=== PATIENT | male | born 1945 | race Caucasian/White ===

== ENCOUNTER → 2017-01-07 | Outpatient (CLI) | payer MEDICARE ==
[2017-01-07 11:26] LABS: Calcium 9.2 mg/dL (8.4-10.2); Potassium 5.1 mmol/L (3.5-5.1)
== END | disposition home or self-care (01) ==
LOC: LABWHC1 10:34
PROVIDERS: ATTEND Nurse Practitioner Family
DX: N18.3 Chronic kidney disease, stage 3 (moderate) (principal)
CPT/HCPCS: 36415; 80048

== ENCOUNTER → 2017-02-18 | Outpatient (CLI) | payer MEDICARE ==
[2017-02-18 11:39] LABS: Appearance,Urine Clear (Clear); Bilirubin,Urine Negative (Negative); Glucose,Urine (UA) Negative (Negative); Ketones,Urine Negative (Negative); Leukocyte Esterase,Urine Negative (Negative); Nitrite,Urine Negative (Negative); PH, Urine 6.5 (5.0-8.0); Protein,Urine Trace (Negative); Specific Gravity,Urine 1.004 (1.001-1.035); UA Billing (MACRO vs. MICRO) CHEM; Urobilinogen,Urine <2.0 mg/dL (<2.0)
[2017-02-18 11:41] LABS: Basophils # (A) 0.1 k/uL (0-0.2); Basophils % (A) 1 %; CHCM 32.5; Eosinophils # (A) 0.2 k/uL (0-0.7); Eosinophils % (A) 3 %; HCT 49.9 % (39.0-53.0); HDW 3.04; HGB 15.8 gm/dL (13.0-17.5); Luc # (Auto) 0.27; Luc % (Auto) 4; Lymphocytes # (A) 1.8 k/uL (1.0-4.8); Lymphocytes % (A) 28 %; MCH 30.3 pg (25.0-35.0); MCHC 31.6 g/dL (31.0-37.0); Mean Platelet Volume 9.4; Monocytes # (A) 0.5 k/uL (0-1.0); Monocytes % (A) 7 %; Neutrophils # (A) 3.7 k/uL (1.3-7.7); Neutrophils % (A) 57 %; RDW 14.5 % (11.5-15.5); WBC 6.5 k/uL (3.8-10.6); WBC (Perox) 6.46
[2017-02-18 12:01] LABS: Calcium 9.2 mg/dL (8.4-10.2); Phosphorous 3.4 mg/dL (2.5-4.5); Potassium 4.7 mmol/L (3.5-5.1); Uric Acid 6.8 mg/dL (3.5-8.5)
[2017-02-18 12:10] LABS: % Iron Saturation 36.1 % (20-50)
== END | disposition home or self-care (01) ==
LOC: LABWHC1 10:54
PROVIDERS: ATTEND Nurse Practitioner Family
DX: N25.81 Secondary hyperparathyroidism of renal origin (principal); D64.9 Anemia, unspecified; E55.9 Vitamin D deficiency, unspecified; M10.9 Gout, unspecified; N39.0 Urinary tract infection, site not specified
CPT/HCPCS: 36415; 80048; 81003; 82306; 82728; 83540; 83550; 83735; 83970; 84100; 84550; 85025

== ENCOUNTER 2017-04-24 20:33 | Emergency (ER) | payer MEDICARE ==
--- NOTE | 2017-04-24 21:15 | ED ---
General Adult HPI - General Chief complaint: Urogenital Stated complaint: Male Time Seen by Provider: 04/24/17 21:00 Source: patient, RN notes reviewed Mode of arrival: ambulatory Limitations: no limitations - History of Present Illness Initial comments: This is a 71-year-old male who had a biopsy done on his prostate on the . Patient states he was taken off the Xarelto for that procedure. Patient was having no more blood in his urine so they started him back on Xarelto. Patient states since Saturday he has been having some issues urinating and urinating blood clots. Patient states he stopped the Xarelto on Saturday. Patient states today however he is completely blocked often unable to urinate. Patient denies any recent fever chills or cough. Patient states the suprapubic area is very tender. Patient denies any nausea vomiting diarrhea. Patient states this was never a problem prior to the biopsy. - Related Data Home Medications Medication Instructions Recorded Confirmed Allopurinol [Zyloprim] 100 mg PO QAM 08/24/15 04/24/17 Atorvastatin [Lipitor] 40 mg PO DAILY 08/24/15 04/24/17 Budesonide [Pulmicort Flexhaler] 1 puff INHALATION RT-DAILY 08/24/15 04/24/17 Enalapril [Vasotec] 2.5 mg PO BID 08/24/15 04/24/17 Furosemide [Lasix] 40 mg PO QAM 08/24/15 04/24/17 Metoprolol Succinate (ER) [Toprol 150 mg PO QAM 08/24/15 04/24/17 Xl] Calcitriol 0.25 mcg PO MOTUWEFRSA 08/29/15 04/24/17 Ergocalciferol [Vitamin D2] 50,000 unit PO QMONTH 04/24/17 04/24/17 Rivaroxaban [Xarelto] 20 mg PO DAILY 04/24/17 04/24/17 Allergies Allergy/AdvReac Type Severity Reaction Status Date / Time alprazolam [From Xanax] AdvReac Unknown Hallucinati Verified 04/24/17 21:04 ons Review of Systems ROS Statement: Those systems with pertinent positive or pertinent negative responses have been documented in the HPI. ROS Other: All systems not noted in ROS Statement are negative. Past Medical History Past Medical History: Coronary Artery Disease (CAD), Cancer, COPD, Hyperlipidemia, Hypertension, Memory Impairment, Myocardial Infarction ([place]), Osteoarthritis (OA), Renal Disease Additional Past Medical History / Comment(s): ischemic cardiomyopathy, class ii heart failure,systolic dysfunction lt ventricle ejection f 25%, carotid athersclerosis, retinal artery branch occlusion rt eye-vison loss, hx of sustained v-tach, past afib dual chamber icd, bladder cancer, ckd stage 111 Last Myocardial Infarction Date:: 1989? History of Any Multi-Drug Resistant Organisms: None Reported Past Surgical History: Coronary Bypass/CABG Additional Past Surgical History / Comment(s): aortic aneursyn, cataracts-lens implants, BUNIONECTOMY.12-13-15 dual chamber implantable cardiac defibrilator generator change and testing, cystoscopy/bx/bcg tx for bladder cancer, colonoscopy-neg, 5 vessel cabg,heart cath after cabg-clear Past Anesthesia/Blood Transfusion Reactions: No Reported Reaction Additional Past Anesthesia/Blood Transfusion Reaction / Comment(s): started smoking at age 11, quit 2002 Past Psychological History: No Psychological Hx Reported Smoking Status: Former smoker Past Alcohol Use History: None Reported Additional Past Alcohol Use History / Comment(s): STARTED SMOKING AGE 11. QUIT SMOKING 2002 Past Drug Use History: None Reported - Past Family History Mother Additional Family Medical History / Comment(s): from aaa Father Family Medical History: Congestive Heart Failure (CHF), CVA/TIA General Exam - General Exam Comments Initial Comments: GENERAL: Patient is well-developed and well-nourished. Patient is nontoxic and well- hydrated and is in mild distress. ENT: Neck is soft and supple. No significant lymphadenopathy is noted. Oropharynx is clear. Moist mucous membranes. EYES: The sclera were anicteric and conjunctiva were pink and moist. Extraocular movements were intact. Eyelids were unremarkable. ABDOMEN: Suprapubic distention and tenderness SKIN: Skin is clear with no lesions or rashes and otherwise unremarkable. NEUROLOGIC: Patient is alert and oriented x3. Cranial nerves II through XII are grossly intact. Motor and sensory are also intact. Normal speech, volume and content. Symmetrical smile. MUSCULOSKELETAL: Normal extremities with adequate strength and full range of motion. LYMPHATICS: No significant lymphadenopathy is noted PSYCHIATRIC: Normal psychiatric evaluation. Limitations: no limitations Course Vital Signs 04/24/17 04/24/17 20:41 21:43 Temperature 98.3 F Pulse Rate 90 55 L Respiratory 18 16 Rate Blood Pressure 228/92 183/79 O2 Sat by Pulse 99 98 Oximetry Medical Decision Making - Medical Decision Making Patient had a catheter placed it relieved his pressure almost immediately. The urine was quite bloody and the patient wanted to go home with the catheter in place and follow up with Dr. Caceres - Lab Data Result diagrams: 04/24/17 21:45 Lab Results 04/24/17 04/24/17 Range/Units 21:45 21:45 WBC 6.1 (3.8-10.6) k/uL RBC 4.69 (4.30-5.90) m/uL Hgb 14.7 (13.0-17.5) gm/dL Hct 44.1 (39.0-53.0) % MCV 94.0 (80.0-100.0) fL MCH 31.4 (25.0-35.0) pg MCHC 33.4 (31.0-37.0) g/dL RDW 14.3 (11.5-15.5) % Plt Count 151 (150-450) k/uL Neutrophils % 60 % Lymphocytes % 25 % Monocytes % 7 % Eosinophils % 5 % Basophils % 1 % Neutrophils # 3.6 (1.3-7.7) k/uL Lymphocytes # 1.5 (1.0-4.8) k/uL Monocytes # 0.4 (0-1.0) k/uL Eosinophils # 0.3 (0-0.7) k/uL Basophils # 0.1 (0-0.2) k/uL Urine Color Dark Red Urine Appearance Bloody (Clear) Urine RBC >182 H (0-5) /hpf Urine WBC >182 H (0-5) /hpf Disposition Clinical Impression: Urinary retention, Hematuria Disposition: HOME SELF-CARE Instructions: Urinary Retention in Men (ED) Referrals: Aden Koenig MD [Primary Care Provider] - 1-2 days Kushal Caceres MD [STAFF PHYSICIAN] - 1-2 days Time of Disposition: 22:30
[2017-04-24 21:56] VITALS: RESP 16
[2017-04-24 22:02] LABS: Basophils # (A) 0.1 k/uL (0-0.2); Basophils % (A) 1 %; CH 31.2; CHCM 33.3; Eosinophils # (A) 0.3 k/uL (0-0.7); Eosinophils % (A) 5 %; HCT 44.1 % (39.0-53.0); HDW 3.03; HGB 14.7 gm/dL (13.0-17.5); Luc # (Auto) 0.15; Luc % (Auto) 3; Lymphocytes # (A) 1.5 k/uL (1.0-4.8); Lymphocytes % (A) 25 %; MCH 31.4 pg (25.0-35.0); MCHC 33.4 g/dL (31.0-37.0); Mean Platelet Volume 8.3; Monocytes # (A) 0.4 k/uL (0-1.0); Monocytes % (A) 7 %; Neutrophils # (A) 3.6 k/uL (1.3-7.7); Neutrophils % (A) 60 %; RBC 4.69 m/uL (4.30-5.90); RDW 14.3 % (11.5-15.5); WBC 6.1 k/uL (3.8-10.6); WBC (Perox) 6.16
[2017-04-24 22:17] LABS: Particle Count 76420; RBC,Urine >182 /hpf (0-5); WBC,Urine >182 /hpf (0-5)
[2017-04-24 22:18] LABS: Appearance,Urine Bloody (Clear)
[2017-04-24 22:20] LABS: UA Billing (MACRO vs. MICRO) MICRO
[2017-04-24 22:47] VITALS: BP 154/67; PULSE 50; TEMP 97.4
== END 2017-04-24 22:46 | disposition home or self-care (01) ==
LOC: EC 20:33
DX: R33.9 Retention of urine, unspecified (principal); R31.9 Hematuria, unspecified; E78.5 Hyperlipidemia, unspecified; I25.10 Atherosclerotic heart disease of native coronary artery without angina pectoris; I25.2 Old myocardial infarction; J44.9 Chronic obstructive pulmonary disease, unspecified; I13.0 Hypertensive heart and chronic kidney disease with heart failure and stage 1 through stage 4 chronic kidney disease, or unspecified chronic kidney disease; N18.3 Chronic kidney disease, stage 3 (moderate); M19.90 Unspecified osteoarthritis, unspecified site; Z95.1 Presence of aortocoronary bypass graft; Z87.891 Personal history of nicotine dependence; Z85.51 Personal history of malignant neoplasm of bladder; Z79.01 Long term (current) use of anticoagulants; Z79.51 Long term (current) use of inhaled steroids; Z79.899 Other long term (current) drug therapy; Z88.8 Allergy status to other drugs, medicaments and biological substances
CPT/HCPCS: 36415; 51798; 81001; 85025; 99284

== ENCOUNTER → 2017-05-27 | Outpatient (CLI) | payer MEDICARE ==
[2017-05-27 11:33] LABS: Calcium 9.8 mg/dL (8.4-10.2); Potassium 5.5 mmol/L (3.5-5.1)
== END | disposition home or self-care (01) ==
LOC: LABWHC1 10:12
PROVIDERS: ATTEND Nurse Practitioner Family
DX: N18.3 Chronic kidney disease, stage 3 (moderate) (principal)
CPT/HCPCS: 36415; 80048

== ENCOUNTER → 2017-06-01 | Outpatient (CLI) | payer MEDICARE ==
[2017-06-01 10:51] LABS: Calcium 9.2 mg/dL (8.4-10.2); Potassium 4.2 mmol/L (3.5-5.1)
== END | disposition home or self-care (01) ==
LOC: LABWHC1 08:46
PROVIDERS: ATTEND Nurse Practitioner
DX: C67.8 Malignant neoplasm of overlapping sites of bladder (principal); N18.3 Chronic kidney disease, stage 3 (moderate)
CPT/HCPCS: 36415; 80048

== ENCOUNTER → 2017-08-02 | Outpatient (CLI) | payer MEDICARE ==
[2017-08-02 16:13] LABS: Basophils # (A) 0.1 k/uL (0-0.2); Basophils % (A) 1 %; CH 29.9; CHCM 31.1; Eosinophils # (A) 0.4 k/uL (0-0.7); Eosinophils % (A) 5 %; HCT 40.1 % (39.0-53.0); HDW 3.04; HGB 12.7 gm/dL (13.0-17.5); Hypochromasia Moderate; Luc # (Auto) 0.25; Luc % (Auto) 3; Lymphocytes # (A) 1.4 k/uL (1.0-4.8); Lymphocytes % (A) 18 %; MCH 30.8 pg (25.0-35.0); MCHC 31.8 g/dL (31.0-37.0); Mean Platelet Volume 7.6; Monocytes # (A) 0.4 k/uL (0-1.0); Monocytes % (A) 5 %; Neutrophils # (A) 5.4 k/uL (1.3-7.7); Neutrophils % (A) 68 %; RBC 4.13 m/uL (4.30-5.90); RDW 15.7 % (11.5-15.5); WBC (Perox) 8.53
[2017-08-02 16:39] LABS: Calcium 9.7 mg/dL (8.4-10.2); Total Bilirubin 0.3 mg/dL (0.2-1.3)
== END | disposition home or self-care (01) ==
LOC: LABWHC1 15:39
PROVIDERS: ATTEND Urology
DX: C67.8 Malignant neoplasm of overlapping sites of bladder (principal)
CPT/HCPCS: 36415; 80053; 85025

== ENCOUNTER → 2017-09-10 | Outpatient (CLI) | payer MEDICARE ==
[2017-09-10 12:56] LABS: Calcium 9.1 mg/dL (8.4-10.2); Total Bilirubin 0.5 mg/dL (0.2-1.3); Total Protein 7.4 g/dL (6.3-8.2)
== END | disposition home or self-care (01) ==
LOC: LABWHC1 12:07
PROVIDERS: ATTEND Internal Medicine Interventional Cardiology
DX: E78.2 Mixed hyperlipidemia (principal)
CPT/HCPCS: 36415; 80053; 80061

== ENCOUNTER → 2017-10-21 | Outpatient (CLI) | payer MEDICARE ==
--- NOTE | 2017-10-21 18:31 | US ---
EXAMINATION TYPE: US kidneys/renal and bladder DATE OF EXAM: 10/21/2017 COMPARISON: 09/12/2015 CLINICAL HISTORY: N18.3 Chronic kidney disease stage 3. Has urostomy bag from July 2017 bladder rem oval. EXAM MEASUREMENTS: Right Kidney: 9.5 x 4.3 x 4.9 cm Left Kidney: 10.2 x 5.2 x 5.0 cm Post Void Residual Volume: NA as bladder surgically removed in July 2017 due to CA. Right Kidney: 1.2 x 1.2 x 1.3cm inferior cortical cyst is imaged with smaller adjacent cyst also note d Left Kidney: inferior cortical cyst = 0.7 x 0.6 x 0.5cm Bladder: surgically removed and unable to scan at bladder midline level due to incisional bandage loc ated here as patient stated has small incisional opening still draining from July surgery. IMPRESSION: There are renal cortical cysts. No evidence of solid renal mass. No evidence of renal obstruction. No adverse change in the kidneys compared to last exam.
== END | disposition home or self-care (01) ==
LOC: RADUSWWP 16:02
PROVIDERS: ATTEND Internal Medicine Nephrology
DX: N28.1 Cyst of kidney, acquired (principal); N18.3 Chronic kidney disease, stage 3 (moderate)
CPT/HCPCS: 76770

== ENCOUNTER → 2017-12-20 | Outpatient (CLI) | payer MEDICARE | END | disposition home or self-care (01) | LOC: LABWHC1 13:34 | PROVIDERS: ATTEND Nurse Practitioner Family | DX: E87.5 Hyperkalemia (principal) | CPT/HCPCS: 36415; 84132 ==

== ENCOUNTER → 2018-01-08 | Outpatient (CLI) | payer MEDICARE ==
[2018-01-08 12:38] LABS: Albumin 4.1 g/dL (3.5-5.0); Calcium 9.3 mg/dL (8.4-10.2); Potassium 5.1 mmol/L (3.5-5.1); Total Bilirubin 0.6 mg/dL (0.2-1.3); Total Protein 7.4 g/dL (6.3-8.2)
== END | disposition home or self-care (01) ==
LOC: LABWHC1 11:41
PROVIDERS: ATTEND Internal Medicine Interventional Cardiology
DX: E78.2 Mixed hyperlipidemia (principal)
CPT/HCPCS: 36415; 80053; 80061

== ENCOUNTER 2018-02-15 18:28 | Inpatient (IN) | payer MEDICARE ==
[2018-02-15] MEDS ORDERED: IPRATROPIUM-ALBUTEROL 3 ML NEB INHALATION STA (18:43)
[2018-02-15] MEDS ORDERED: SODIUM CHLORIDE 0.9% 1,000 ML IV STA (18:52)
--- NOTE | 2018-02-15 18:58 | ED ---
General Adult HPI - General Chief complaint: Shortness of Breath Stated complaint: LUZMARIA Time Seen by Provider: 02/15/18 18:40 Source: patient, RN notes reviewed, old records reviewed Mode of arrival: wheelchair Limitations: no limitations - History of Present Illness Initial comments: Chief complaint history of present illness is a 72-year-old male here for complaint of shortness of breath. Worse this morning. Worse with to see the mild exertion. No pain. On emergency room call several times in the small amount of blood, hemoptysis in the phlegm. Patient again denies any chest pain. Past history of COPD. Does not do updrafts at home. - Related Data Home Medications Medication Instructions Recorded Confirmed Allopurinol [Zyloprim] 100 mg PO QAM 08/24/15 02/15/18 Atorvastatin [Lipitor] 40 mg PO HS 08/24/15 02/15/18 Budesonide [Pulmicort Flexhaler] 1 puff INHALATION RT-DAILY 08/24/15 02/15/18 Calcitriol 0.25 mcg PO MOTUWEFRSA 08/29/15 02/15/18 Metoprolol Tartrate [Lopressor] 50 mg PO HS 11/29/17 02/15/18 Metoprolol Tartrate [Lopressor] 100 mg PO DAILY 11/29/17 02/15/18 hydrALAZINE HCL [Apresoline] 25 mg PO BID 02/15/18 02/15/18 Allergies Allergy/AdvReac Type Severity Reaction Status Date / Time alprazolam [From Xanax] AdvReac Unknown Hallucinati Verified 02/15/18 19:09 ons codeine AdvReac Hallucinati Verified 02/15/18 19:09 ons Review of Systems ROS Statement: Those systems with pertinent positive or pertinent negative responses have been documented in the HPI. Review of systems. No headache or visual acuity changes. No stiff neck. No chest pain but he has a cough and feel short of breath with even mild exertion. Hemoptysis is noted while in emergency room. No nausea no vomiting no change in appetite. Back pain. No stomach pain. All systems are reviewed Past medical problems significant for coronary disease and [place]. Bladder cancer with bladder removed this past July. CHF, COPD, hyperlipidemia. He's had a history of hyper tension osteoarthritis and chronic renal failure. As well as ischemic cardiomyopathy. Surgeries include coronary bypass, pacemaker and aortic aneurysm repair. Patient quit smoking 15 years ago drinks alcohol rarely socially. Family history no cancers. ALLERGIES to alprazolam and codeine ROS Other: All systems not noted in ROS Statement are negative. Past Medical History Past Medical History: Coronary Artery Disease (CAD), Cancer, Heart Failure, COPD , Hyperlipidemia, Hypertension, Memory Impairment, Myocardial Infarction ([place]), Osteoarthritis (OA), Renal Disease Additional Past Medical History / Comment(s): ischemic cardiomyopathy, class ii heart failure,systolic dysfunction lt ventricle ejection f 25%, carotid athersclerosis, retinal artery branch occlusion rt eye-vison loss, hx of sustained v-tach, past afib dual chamber icd, bladder cancer, ckd stage 3 Last Myocardial Infarction Date:: 1989? History of Any Multi-Drug Resistant Organisms: None Reported Past Surgical History: Coronary Bypass/CABG, Pacemaker Additional Past Surgical History / Comment(s): aortic aneursyn, cataracts-lens implants, BUNIONECTOMY.12-13-15 dual chamber implantable cardiac defibrilator generator change and testing, cystoscopy/bx/bcg tx for bladder cancer, bladder removed, urostomy placed, colonoscopy-neg, 5 vessel cabg,heart cath after cabg- clear Past Anesthesia/Blood Transfusion Reactions: No Reported Reaction Additional Past Anesthesia/Blood Transfusion Reaction / Comment(s): started smoking at age 10, quit 2003 Type of Cardiac Device: AICD Device Placement Date:: 12/13/2015 Past Psychological History: No Psychological Hx Reported Smoking Status: Former smoker Past Alcohol Use History: None Reported Past Drug Use History: None Reported - Past Family History Mother Additional Family Medical History / Comment(s): from aaa Father Family Medical History: Congestive Heart Failure (CHF), CVA/TIA General Exam - General Exam Comments Initial Comments: General: The patient is awake and alert, here because of difficulty breathing which started this morning. Worse with even mild exertion. While in emergency room he did cough some blood in the his tissue. He reports this only happened twice today. Denying chest pain. Vital signs are temperature 97.7 pulse respiratory rate 26 pulse ox 95% room air blood pressure 188/77 Eye: Pupils are equal, round and reactive to light, extra-ocular movements are intact ; there is normal conjunctiva bilaterally. No signs of icterus. Ears, nose, mouth and throat: There are moist mucous membranes and no oral lesions. Neck: The neck is supple, there is no tenderness, no carotid bruit. Cardiovascular: Bradycardic heart rate 54. Patient reports that his pacemaker is set to 50. Respiratory: Faint wheeze on the right side, short of breath, appears dyspneic. Hemoptysis. Gastrointestinal: Soft, non-distended, non-tender abdomen without masses or organomegaly noted. There is no rebound or guarding present. No CVA tenderness. Bowel sounds are unremarkable. Back: There is no tenderness to palpation in the midline. There is no obvious deformity. No rashes noted. Musculoskeletal: Normal ROM, no tenderness, minimal pitting edema right leg only. There is no calf tenderness or swelling. Sensation intact. Pulses equal bilaterally 2+. Neurological: CN II-XII intact, There are no obvious motor or sensory deficits. Coordination appears grossly intact. Speech is normal. No focal or lateralizing findings Skin: Skin is warm and dry and no rashes or lesions are noted. No rashes Psychiatric: Cooperative, Limitations: no limitations Course Vital Signs 02/15/18 02/15/18 02/15/18 18:31 18:49 18:58 Temperature 97.7 F Pulse Rate 60 56 L 56 L Respiratory 26 H 18 18 Rate Blood Pressure 188/77 O2 Sat by Pulse 95 Oximetry 02/15/18 02/15/18 02/15/18 19:15 20:05 21:05 Temperature Pulse Rate 56 L 50 L Respiratory 20 16 17 Rate Blood Pressure 135/60 135/64 O2 Sat by Pulse 94 L 90 L Oximetry Medical Decision Making - Medical Decision Making Medical decision making; a 72-year-old male here with complaint of shortness of breath. While in emergency room he coughed up several times small amounts of blood, hemoptysis. UpdraftDuoNeb did help. The patient was sent for a chest x-ray, report findings and implantable cardiac device noted. Interstitial opacities are seen in the right lung increased since previous study. Mild cephalization of the pulmonary vessels. No pneumothorax or pleural effusion is seen. There is flattening of the diaphragm. There is sternotomy wires. Compression mild CHF. As read by Dr. Vasques. [employer] show a white count of 20.6. Hemoglobin 13 hematocrit of 42. INR 1.2. D -dimer elevated at 6.07. Potassium is 4.9. The patient's chronic kidney disease and his numbers are similar today as they have been in the past with a BUN of 36 creatinine 1.6 to GFR of only 42. Glucose 101. Troponin 0.024. BNP elevated at 6820. The patient will have a VQ scan to rule out PE. VQ scan was done to rule out PE. The radiologist's findings are there are matching use segmental size defects involving the lingula left upper lobe, so. Segment right lower lobe, right middle lobe. There is also matching defect at the right lung apex. There is no ventilation perfusion mismatch. Heart appears enlarged. Impression multiple matching defects consistent with airway disease. These appear worse than old exam. There is no pulmonary consolidation on the chest x-ray today. There is overall a low intermediate probability of pulmonary embolism. As dictated by Dr. Bautista. the patient be admitted to Dr. Schumacher. Diagnosis of congestive heart failure, hemoptysis, chronic kidney disease. Cardiology consultation as well as nephrology consultation be requested. - Lab Data Result diagrams: 02/15/18 19:35 02/15/18 19:35 Lab Results 02/15/18 02/15/18 02/15/18 Range/Units 19:35 19:35 19:35 WBC 20.6 H (3.8-10.6) k/uL RBC 4.69 (4.30-5.90) m/uL Hgb 13.3 (13.0-17.5) gm/dL Hct 42.2 (39.0-53.0) % MCV 90.0 (80.0-100.0) fL MCH 28.4 (25.0-35.0) pg MCHC 31.6 (31.0-37.0) g/dL RDW 16.1 H (11.5-15.5) % Plt Count 131 L (150-450) k/uL Neutrophils % 94 % Lymphocytes % 3 % Monocytes % 2 % Eosinophils % 1 % Basophils % 0 % Neutrophils # 19.4 H (1.3-7.7) k/uL Lymphocytes # 0.5 L (1.0-4.8) k/uL Monocytes # 0.3 (0-1.0) k/uL Eosinophils # 0.2 (0-0.7) k/uL Basophils # 0.1 (0-0.2) k/uL Hypochromasia Slight Anisocytosis Slight PT (9.0-12.0) sec INR (<1.2) APTT (22.0-30.0) sec D-Dimer (<0.60) mg/L FEU Sodium 143 (137-145) mmol/L Potassium 4.9 (3.5-5.1) mmol/L Chloride 106 (98-107) mmol/L Carbon Dioxide 25 (22-30) mmol/L Anion Gap 12 mmol/L BUN 36 H (9-20) mg/dL Creatinine 1.60 H (0.66-1.25) mg/dL Est GFR (CKD-EPI)AfAm 49 (>60 ml/min/1.73 sqM) Est GFR (CKD-EPI)NonAf 42 (>60 ml/min/1.73 sqM) Glucose 101 H (74-99) mg/dL Calcium 9.6 (8.4-10.2) mg/dL Magnesium 1.8 (1.6-2.3) mg/dL Total Bilirubin 0.7 (0.2-1.3) mg/dL AST 26 (17-59) U/L ALT 26 (21-72) U/L Alkaline Phosphatase 75 (38-126) U/L Total Creatine Kinase 59 (55-170) U/L CK-MB (CK-2) 0.9 (0.0-2.4) ng/mL CK-MB (CK-2) Rel Index 1.5 Troponin I 0.024 (0.000-0.034) ng/mL NT-Pro-B Natriuret Pep pg/mL Total Protein 7.6 (6.3-8.2) g/dL Albumin 4.1 (3.5-5.0) g/dL 02/15/18 02/15/18 Range/Units 19:35 19:35 WBC (3.8-10.6) k/uL RBC (4.30-5.90) m/uL Hgb (13.0-17.5) gm/dL Hct (39.0-53.0) % MCV (80.0-100.0) fL MCH (25.0-35.0) pg MCHC (31.0-37.0) g/dL RDW (11.5-15.5) % Plt Count (150-450) k/uL Neutrophils % % Lymphocytes % % Monocytes % % Eosinophils % % Basophils % % Neutrophils # (1.3-7.7) k/uL Lymphocytes # (1.0-4.8) k/uL Monocytes # (0-1.0) k/uL Eosinophils # (0-0.7) k/uL Basophils # (0-0.2) k/uL Hypochromasia Anisocytosis PT 11.5 (9.0-12.0) sec INR 1.2 H (<1.2) APTT 23.7 (22.0-30.0) sec D-Dimer 6.07 H (<0.60) mg/L FEU Sodium (137-145) mmol/L Potassium (3.5-5.1) mmol/L Chloride (98-107) mmol/L Carbon Dioxide (22-30) mmol/L Anion Gap mmol/L BUN (9-20) mg/dL Creatinine (0.66-1.25) mg/dL Est GFR (CKD-EPI)AfAm (>60 ml/min/1.73 sqM) Est GFR (CKD-EPI)NonAf (>60 ml/min/1.73 sqM) Glucose (74-99) mg/dL Calcium (8.4-10.2) mg/dL Magnesium (1.6-2.3) mg/dL Total Bilirubin (0.2-1.3) mg/dL AST (17-59) U/L ALT (21-72) U/L Alkaline Phosphatase (38-126) U/L Total Creatine Kinase (55-170) U/L CK-MB (CK-2) (0.0-2.4) ng/mL CK-MB (CK-2) Rel Index Troponin I (0.000-0.034) ng/mL NT-Pro-B Natriuret Pep 6820 pg/mL Total Protein (6.3-8.2) g/dL Albumin (3.5-5.0) g/dL Disposition Clinical Impression: Congestive heart failure, Chronic kidney disease, Hemoptysis, COPD (chronic obstructive pulmonary disease) Disposition: ADMITTED IP TO THIS [facility] Condition: Serious Referrals: Jose Rafael Jolly MD [Primary Care Provider] - 1-2 days
[2018-02-15 19:46] LABS: Anisocytosis Slight; Basophils # (A) 0.1 k/uL (0-0.2); Basophils % (A) 0 %; Eosinophils # (A) 0.2 k/uL (0-0.7); Eosinophils % (A) 1 %; HCT 42.2 % (39.0-53.0); HGB 13.3 gm/dL (13.0-17.5); Hypochromasia Slight; Lymphocytes # (A) 0.5 k/uL (1.0-4.8); Lymphocytes % (A) 3 %; MCH 28.4 pg (25.0-35.0); MCHC 31.6 g/dL (31.0-37.0); Mean Platelet Volume 8.9; Monocytes # (A) 0.3 k/uL (0-1.0); Monocytes % (A) 2 %; Neutrophils # (A) 19.4 k/uL (1.3-7.7); Neutrophils % (A) 94 %; Platelet Count 131 k/uL (150-450); RBC 4.69 m/uL (4.30-5.90); RDW 16.1 % (11.5-15.5); WBC 20.6 k/uL (3.8-10.6)
[2018-02-15 19:53] LABS: Albumin 4.1 g/dL (3.5-5.0); Calcium 9.6 mg/dL (8.4-10.2); Magnesium 1.8 mg/dL (1.6-2.3); Potassium 4.9 mmol/L (3.5-5.1); Total Bilirubin 0.7 mg/dL (0.2-1.3); Total Protein 7.6 g/dL (6.3-8.2)
--- NOTE | 2018-02-15 19:53 | XR ---
EXAMINATION TYPE: XR chest 2V DATE OF EXAM: 02/15/2018 COMPARISON: April 06, 2016 HISTORY: Chest pain TECHNIQUE: Frontal and lateral views of the chest are obtained. FINDINGS: Implantable cardiac device is again noted. Interstitial opacities are seen in the right janey ng have slightly increased since the previous study. There is mild cephalization of the pulmonary ves sels. No pneumothorax or pleural effusion is seen. There is flattening of the diaphragm. There is bee n a sternotomy. IMPRESSION: Mild CHF
[2018-02-15 19:59] LABS: INR 1.2 (<1.2); Partial Thromboplastin Time 23.7 sec (22.0-30.0); Prothrombin Time 11.5 sec (9.0-12.0)
[2018-02-15 20:03] LABS: D-Dimer 6.07 mg/L FEU (<0.60)
[2018-02-15 20:28] LABS: Creatine Kinase MB 0.9 ng/mL (0.0-2.4); Troponin I 0.024 ng/mL (0.000-0.034)
[2018-02-15] MEDS ORDERED: FUROSEMIDE 10 MG/ML 4 ML VIAL IV STA (20:52)
--- NOTE | 2018-02-15 22:53 | NM ---
EXAMINATION TYPE: NM pul vent and perfuse DATE OF EXAM: 02/15/2018 COMPARISON: 08/10/2010 HISTORY: Short of breath TECHNIQUE: Utilizing inhalation of 69 mCi Tc 99m DTPA aerosol and intravenous injection of 5.4 mCi o f Tc 99m MAA, ventilation and perfusion images are acquired post injection in multiple projections. FINDINGS: There are matching segmental sized defects involving the lingula left upper lobe, superior segment ri ght lower lobe, right middle lobe. There is also matching defect at the right lung apex. There is no ventilation/perfusion mismatch. Heart appears enlarged. IMPRESSION: Multiple matching defects consistent with airway disease. These appear worse than old exam. There is no pulmonary consolidation on the chest x-ray today. There is overall a low to intermediate probability of pulmonary embolism.
[2018-02-15] MEDS ORDERED: ACETAMINOPHEN TAB 325 MG TAB PO PRN (23:15)
[2018-02-15] MEDS ORDERED: NALOXONE 0.4 MG/ML 1 ML VIAL IV PRN (23:15)
[2018-02-15] MEDS ORDERED: IPRATROPIUM-ALBUTEROL 3 ML NEB INHALATION PRN (23:22)
[2018-02-16] MEDS: methylPREDNISolone SOD SUCCI 40 MG/ML 1 ML VIAL IV SCH ×2 (00:14→06:29)
[2018-02-16] MEDS: SODIUM CHLORIDE 0.9% 1,000 ML IV SCH ×2 (00:14→23:19)
[2018-02-16 01:53] LABS: Creatine Kinase MB 0.9 ng/mL (0.0-2.4); Troponin I 0.012 ng/mL (0.000-0.034)
[2018-02-16 06:12] LABS: Glucose,Whole Blood 149 mg/dL (75-99)
[2018-02-16] MEDS: INSULIN ASPART 100 UNIT/ML 1 ML 10 ML VIAL SQ SCH ×4 (06:29→21:46)
[2018-02-16 07:36] LABS: Albumin 3.7 g/dL (3.5-5.0); Total Bilirubin 0.8 mg/dL (0.2-1.3); Total Protein 6.9 g/dL (6.3-8.2)
[2018-02-16 08:08] LABS: Basophils % (A) 0 %; Eosinophils % (A) 0 %; HCT 39.6 % (39.0-53.0); HGB 12.4 gm/dL (13.0-17.5); Hypochromasia Slight; Lymphocytes # (A) 0.4 k/uL (1.0-4.8); Lymphocytes % (A) 2 %; MCH 28.2 pg (25.0-35.0); MCHC 31.3 g/dL (31.0-37.0); Mean Platelet Volume 8.6; Monocytes # (A) 0.2 k/uL (0-1.0); Monocytes % (A) 1 %; Neutrophils # (A) 19.1 k/uL (1.3-7.7); Neutrophils % (A) 96 %; Platelet Count 132 k/uL (150-450); WBC 19.8 k/uL (3.8-10.6)
[2018-02-16 08:15] LABS: Creatine Kinase MB 1.4 ng/mL (0.0-2.4)
[2018-02-16 08:23] LABS: Troponin I 0.035 ng/mL (0.000-0.034)
[2018-02-16] MEDS: ALLOPURINOL 100 MG TAB PO SCH (08:33)
[2018-02-16] MEDS: hydrALAZINE HCL 25 MG TAB PO SCH ×2 (08:33→20:06)
[2018-02-16] MEDS ORDERED: FUROSEMIDE 10 MG/ML 2 ML VIAL IV SCH (09:00)
--- NOTE | 2018-02-16 10:27 | CONS ---
CONSULTATION DATE OF SERVICE: 02/16/2018. REASON FOR CONSULT: Renal failure. HISTORY OF PRESENT ILLNESS: Patient is a 72-year-old male who was admitted to the hospital with a history of cough and increased shortness of breath. He stated he had been coughing bloody phlegm. He denied any significant fever. The patient stated that he had worsening shortness of breath about 2 weeks ago and was treated with increased Lasix and this had improved his cough and shortness of breath, however, it seemed to have progressed and worsened a few days prior to admission. The patient does have chronic kidney disease with baseline creatinine about 1.6 mg to 1.5 mg/dL. The etiology is secondary to nephrosclerosis. UA has shown 1+ protein previously. There is likely an underlying component of diabetic nephropathy as well. Renal function is currently at its baseline. The patient is maintained on steroids. I do not see any antibiotics on board. Chest x-ray from yesterday evening shows mild CHF. No major infiltrates were noted. 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 PAST SURGICAL HISTORY: Coronary artery bypass surgery, pacemaker placement, aortic aneurysm repair, cataract surgery, cystectomy for bladder cancer with urostomy and neobladder formation, previous colonoscopy. SOCIAL HISTORY: The patient is a former smoker. No history of drug abuse or alcohol abuse. REVIEW OF SYSTEMS: As per HPI. Other systems negative. ALLERGIES: CODEINE, XANAX. MEDICATIONS: Medications at home prior to admission, Zyloprim, Lipitor, Lopressor, hydralazine, calcitriol. PHYSICAL EXAMINATION: Patient is comfortable, awake. He is not in any acute distress. Blood pressure is 143/60, heart rate 56 per minute. He is afebrile. Examination of the heart S1, S2. Examination lungs bilateral breath sounds are heard. Abdomen is soft, nontender. Exam of lower extremities shows trace edema bilaterally. COMPUTER SUPPORT SPECIALIST exam is grossly intact. LABS: Sodium 141, potassium 5.0, chloride 105, BUN 40, serum creatinine 1.69, hemoglobin 12.4 g/dL. INR is 1.2. UA is not available. Troponin was 0.035. ASSESSMENT: 1. Chronic kidney disease, NKF stage III secondary to nephrosclerosis and diabetic nephropathy. Renal function at its baseline. 2. Chronic kidney disease mineral bone disorder, maintained on calcitriol at home. 3. Congestive heart failure/volume overload, acute on top of chronic, mainly systolic, maintained on IV Lasix which we can continue for now. 4. Chronic obstructive pulmonary disease with possible exacerbation, maintained on steroids. 5. History of bladder cancer status post cystectomy and urostomy with neobladder formation. PLAN: Discontinue IV fluids. Continue with Lasix. Repeat labs in a.m. Thank you for this consultation. We will continue to follow the patient with you during his hospitalization. MMODL / IJN: [id number] /
--- NOTE | 2018-02-16 11:18 | CONS ---
CONSULTATION CHIEF COMPLAINT: Shortness of breath. Mr. Todd is a 72-year-old gentleman with history of coronary artery disease, status post CABG, hypertension, dyslipidemia, chronic atrial fibrillation, sick sinus syndrome, status post permanent pacemaker, who presented to hospital complaining of episodes of shortness of breath. He describes it as sudden onset shortness of breath yesterday that gradually got worse. He denies any chest pain, palpitations, dizziness, syncope, or focal neurological deficits. On his initial presentation yesterday, he had a V/Q scan that was low probability for pulmonary embolism. The EKG shows atrial fibrillation with paced rhythm. Lab showed that the D-dimer was elevated at 6, BUN is 40, creatinine is 1.6. BNP is elevated. Had 3 sets of troponins that were at 0.02, 0.01, and 0.03. The patient's clinical presentation is consistent with shortness of breath related to congestive heart failure. Chest x-ray also shows mild pulmonary congestion. However, underlying myocardial ischemia cannot be ruled out. Ischemia is a present and for heart failure is a possibility. PAST MEDICAL HISTORY: Significant for chronic atrial fibrillation, coronary artery disease, status post CABG, sick sinus syndrome, status post permanent pacemaker, hypertension, dyslipidemia, and diabetes. MEDICATIONS: At home include Lopressor, Apresoline, Lipitor, Lasix, Zyloprim. ALLERGIC: To CODEINE AND XANAX. FAMILY HISTORY: Negative for premature coronary artery disease. SOCIAL HISTORY: Negative for current smoking, ETOH abuse or drug abuse. REVIEW OF SYSTEMS: HEENT is unremarkable. CARDIAC: As described above. RESPIRATORY: Significant for shortness of breath. GI: Negative. GENITOURINARY: Negative. ALLERGY/IMMUNOLOGY: Negative. SKIN AND MUSCULOSKELETAL: Significant for arthritis. PSYCHOSOCIAL: Negative. ENDOCRINE: Negative. DERM: Negative. CONSTITUTIONAL: Negative. ONCOLOGICAL: Negative. The rest of the system review is not relevant. PHYSICAL EXAM: Heart rate is 60 beats per minute. Blood pressure is 140/60, respiratory rate is 18, O2 sat is 94% on 4 L. There is no jugular venous distention. Carotid upstroke is diminished. Chest exam reveals diminished air entry bilaterally. Heart exam reveals first and second heart sounds and a systolic murmur at the left lower sternal border. Abdomen is soft. Exam of the extremities reveals trace edema. Peripheral pulses are felt. LAB: Show that the white cell count is 19.8, hemoglobin is 12.4, creatinine is 1.6 with a BUN of 40. Troponin is mildly elevated. His potassium is at 5. ASSESSMENT: 1. Acute onset congestive heart failure. 2. Mild troponin elevation probably related to either underlying renal insufficiency and supply demand mismatch. 3. Coronary artery disease, status post CABG to rule out myocardial ischemia. PLAN: Will treat the patient with IV Lasix. Continue the beta blockers, hydralazine, obtain an echo on him and consider a stress test and if he has ischemia, consider cardiac catheterization. MMODL / IJN: [id number] /
[2018-02-16 12:18] LABS: Glucose,Whole Blood 185 mg/dL (75-99)
--- NOTE | 2018-02-16 14:57 | P.HPIM ---
History of Present Illness 69-year-old pleasant gentleman with the history of concerns to heart failure with severe systolic dysfunction ejection fraction is unknown came in with compensative shortness of breath cough with the reddish sputum production, found to have pulmonary edema on the chest x-ray as well as COPD exacerbation although patient is not wheezing at this point of time patient is feeling much better now IV steroids will be switched to oral steroids and patient is on IV Lasix. Patient does have history of chronic kidney disease stage III with baseline creatinine around 1.6-1.9 present creatinine being 1.6 and patient is on 40 mg IV twice a day Lasix at this time. Patient is Complaint with his diet and medications, denied any fever chills chest x-ray did not show any pneumonic process. Patient denied any clear-cut orthopnea or PND Review of Systems REVIEW OF SYSTEMS: CONSTITUTIONAL: No fever, no malaise, no fatigue. HEENT: No recent visual problems or hearing problems. Denied any sore throat. CARDIOVASCULAR: No chest pain, orthopnea, PND, no palpitations, no syncope. PULMONARY: As mentioned in HPI GASTROINTESTINAL: No diarrhea, no nausea, no vomiting, no abdominal pain. Normoactive bowel sounds. NEUROLOGICAL: No headaches, no weakness, no numbness. HEMATOLOGICAL: Denies any bleeding or petechiae. GENITOURINARY: Denies any burning micturition, frequency, or urgency. MUSCULOSKELETAL/RHEUMATOLOGICAL: Denies any joint pain, swelling, or any muscle pain. ENDOCRINE: Denies any polyuria or polydipsia. The rest of the 14-point review of systems is negative. Past Medical History Past Medical History: Coronary Artery Disease (CAD), Cancer, Heart Failure, COPD , Hyperlipidemia, Hypertension, Memory Impairment, Myocardial Infarction ([place]), Osteoarthritis (OA), Renal Disease Additional Past Medical History / Comment(s): ischemic cardiomyopathy, class ii heart failure,systolic dysfunction lt ventricle ejection f 25%, carotid athersclerosis, retinal artery branch occlusion rt eye-vison loss, hx of sustained v-tach, past afib dual chamber icd, bladder cancer, ckd stage 3 Last Myocardial Infarction Date:: 1989? History of Any Multi-Drug Resistant Organisms: None Reported Past Surgical History: Coronary Bypass/CABG, Pacemaker Additional Past Surgical History / Comment(s): aortic aneursyn, cataracts-lens implants, BUNIONECTOMY.12-13-15 dual chamber implantable cardiac defibrilator generator change and testing, cystoscopy/bx/bcg tx for bladder cancer, bladder removed, urostomy placed, colonoscopy-neg, 5 vessel cabg,heart cath after cabg- clear Past Anesthesia/Blood Transfusion Reactions: No Reported Reaction Additional Past Anesthesia/Blood Transfusion Reaction / Comment(s): started smoking at age 10, quit 2003 Type of Cardiac Device: AICD Device Placement Date:: 12/13/2015 Past Psychological History: No Psychological Hx Reported Smoking Status: Former smoker Past Alcohol Use History: None Reported Additional Past Alcohol Use History / Comment(s): STARTED SMOKING AGE 10. QUIT SMOKING 2003 Past Drug Use History: None Reported - Past Family History Mother Additional Family Medical History / Comment(s): from aaa Father Family Medical History: Congestive Heart Failure (CHF), CVA/TIA Medications and Allergies Home Medications Medication Instructions Recorded Confirmed Type Allopurinol [Zyloprim] 100 mg PO QAM 08/24/15 02/15/18 History Atorvastatin [Lipitor] 40 mg PO HS 08/24/15 02/15/18 History Budesonide [Pulmicort Flexhaler] 1 puff INHALATION RT-DAILY 08/24/15 02/15/18 History Calcitriol 0.25 mcg PO MOTUWEFRSA 08/29/15 02/15/18 History Metoprolol Tartrate [Lopressor] 50 mg PO HS 11/29/17 02/15/18 History Metoprolol Tartrate [Lopressor] 100 mg PO DAILY 11/29/17 02/15/18 History hydrALAZINE HCL [Apresoline] 25 mg PO BID 02/15/18 02/15/18 History Furosemide [Lasix] 40 mg PO HS 02/16/18 02/16/18 History Allergies Allergy/AdvReac Type Severity Reaction Status Date / Time alprazolam [From Xanax] AdvReac Unknown Hallucinati Verified 02/15/18 19:09 ons codeine AdvReac Hallucinati Verified 02/15/18 19:09 ons Physical Exam Vitals: Vital Signs Temp Pulse Pulse Resp BP BP Pulse Ox 02/16/18 11:51 97.6 F 50 L 20 138/62 94 L 02/16/18 08:32 60 02/16/18 08:18 56 L 02/16/18 08:00 97.6 F 50 L 20 143/60 94 L 02/16/18 04:00 97.5 F L 50 L 20 114/62 94 L 02/16/18 00:47 97.5 F L 50 L 22 137/64 92 L 02/16/18 00:25 97.5 F L 50 L 22 137/64 92 L 02/16/18 00:17 50 L 17 96 02/15/18 23:55 57 L 17 134/60 92 L 02/15/18 21:50 48 L 17 128/60 92 L 02/15/18 21:05 50 L 17 135/64 90 L 02/15/18 20:05 56 L 16 135/60 94 L 02/15/18 19:15 20 02/15/18 18:58 56 L 18 02/15/18 18:49 56 L 18 02/15/18 18:31 97.7 F 60 26 H 188/77 95 Intake and Output 02/15/18 02/16/18 02/16/18 22:59 06:59 14:59 Output Total 250 Balance -250 Output: Urine 250 Other: # Voids 1 Weight 92.079 kg 86.7 kg 86.7 kg PHYSICAL EXAMINATION: GENERAL: The patient is alert and oriented x3, not in any acute distress. Well developed, well nourished. HEENT: Pupils are round and equally reacting to light. EOMI. No scleral icterus. No conjunctival pallor. Normocephalic, atraumatic. No pharyngeal erythema. No thyromegaly. CARDIOVASCULAR: S1 and S2 present. No murmurs, rubs, or gallops. PULMONARY: Patient does have diffuse bilateral crackles with fairly good air entry into bilateral lung lal no significant expiratory wheezing was appreciated ABDOMEN: Soft, nontender, nondistended, normoactive bowel sounds. No palpable organomegaly. MUSCULOSKELETAL: No joint swelling or deformity. EXTREMITIES: No cyanosis, clubbing, or pedal edema. NEUROLOGICAL: Gross neurological examination did not reveal any focal deficits. SKIN: No rashes. Results CBC & Chem 7: 02/16/18 07:15 02/16/18 07:15 Labs: Abnormal Lab Results - Last 24 Hours (Table) 02/15/18 02/15/18 02/15/18 Range/Units 19:35 19:35 19:35 WBC 20.6 H (3.8-10.6) k/uL Hgb (13.0-17.5) gm/dL RDW 16.1 H (11.5-15.5) % Plt Count 131 L (150-450) k/uL Neutrophils # 19.4 H (1.3-7.7) k/uL Lymphocytes # 0.5 L (1.0-4.8) k/uL INR 1.2 H (<1.2) D-Dimer 6.07 H (<0.60) mg/L FEU BUN 36 H (9-20) mg/dL Creatinine 1.60 H (0.66-1.25) mg/dL Glucose 101 H (74-99) mg/dL POC Glucose (mg/dL) (75-99) mg/dL Troponin I (0.000-0.034) ng/mL 02/16/18 02/16/18 02/16/18 Range/Units 06:10 07:15 07:15 WBC 19.8 H (3.8-10.6) k/uL Hgb 12.4 L (13.0-17.5) gm/dL RDW 16.0 H (11.5-15.5) % Plt Count 132 L (150-450) k/uL Neutrophils # 19.1 H (1.3-7.7) k/uL Lymphocytes # 0.4 L (1.0-4.8) k/uL INR (<1.2) D-Dimer (<0.60) mg/L FEU BUN 40 H (9-20) mg/dL Creatinine 1.69 H (0.66-1.25) mg/dL Glucose 146 H (74-99) mg/dL POC Glucose (mg/dL) 149 H (75-99) mg/dL Troponin I (0.000-0.034) ng/mL 18 02/16/18 Range/Units 07:15 11:51 WBC (3.8-10.6) k/uL Hgb (13.0-17.5) gm/dL RDW (11.5-15.5) % Plt Count (150-450) k/uL Neutrophils # (1.3-7.7) k/uL Lymphocytes # (1.0-4.8) k/uL INR (<1.2) D-Dimer (<0.60) mg/L FEU BUN (9-20) mg/dL Creatinine (0.66-1.25) mg/dL Glucose (74-99) mg/dL POC Glucose (mg/dL) 185 H (75-99) mg/dL Troponin I 0.035 H* (0.000-0.034) ng/mL Thrombosis Risk Factor Assmnt - Choose All That Apply Each Factor Represents 1 point: Abnormal pulmonary function (COPD), Swollen legs (current) Each Risk Factor Represents 2 Points: Age 61-74 years Thrombosis Risk Factor Assessment Total Risk Factor Score: 4 Thrombosis Risk Factor Assessment Level: Moderate Risk Assessment and Plan Plan: -Acute hypoxic respiratory failure: Secondary to congestive heart failure exacerbation patient has chronic systolic dysfunction. -Possibly of super exacerbation patient will will be continued on 40 mg of oral steroids inhalational treatments. 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 -Hyperlipidemia -Hypertension -Chronic kidney disease stage III secondary to diabetic nephropathy -Type 2 diabetes mellitus For above-mentioned chronic medical problems patient will be continued on appropriate home medications and patient will be can you done IV 40 twice a day of Lasix with close kidney function monitoring and electrolyte monitoring
[2018-02-16 17:02] LABS: Glucose,Whole Blood 137 mg/dL (75-99)
[2018-02-16 19:34] LABS: Hemoglobin A1C 5.9 % (4.0-6.0)
[2018-02-16] MEDS: METOPROLOL TARTRATE 50 MG TAB PO SCH (20:07)
[2018-02-16] MEDS: ATORVASTATIN 40 MG TAB PO SCH (20:07)
[2018-02-16] MEDS: FUROSEMIDE 10 MG/ML 4 ML VIAL IV SCH (20:11)
[2018-02-16 21:01] LABS: Glucose,Whole Blood 206 mg/dL (75-99)
[2018-02-17 05:40] LABS: Glucose,Whole Blood 127 mg/dL (75-99)
[2018-02-17] MEDS: INSULIN ASPART 100 UNIT/ML 1 ML 10 ML VIAL SQ SCH ×4 (06:04→22:09)
[2018-02-17] MEDS ORDERED: BUDESONIDE 0.5 MG/2 ML NEBU INHALATION SCH (08:00)
[2018-02-17] MEDS: hydrALAZINE HCL 25 MG TAB PO SCH ×2 (08:51→21:36)
[2018-02-17] MEDS: predniSONE 20 MG TAB PO SCH (08:51)
[2018-02-17] MEDS: ALLOPURINOL 100 MG TAB PO SCH (08:51)
[2018-02-17] MEDS: FUROSEMIDE 10 MG/ML 4 ML VIAL IV SCH ×2 (08:51→21:36)
[2018-02-17 11:30] LABS: Glucose,Whole Blood 100 mg/dL (75-99)
--- NOTE | 2018-02-17 14:05 | P.PN ---
Subjective 69-year-old gentleman was admitted secondary to chronic systolic dysfunction ischemic cardiomyopathy acute exacerbation of heart failure, patient is clinically doing well. Cardiology is recommending stress test tomorrow before discharge. Continue with IV Lasix. Constitutional: Denied any fatigue denied any fever. Cardio vascular: denied any chest pain, palpitations Gastrointestinal denied any nausea vomiting Pulmonary: Denied any shortness of breath cough Neurologic denied any new focal deficits Objective - Vital Signs Vital signs: Vital Signs Temp 97.2 F L 02/17/18 11:28 Pulse 50 L 02/17/18 11:28 Resp 16 02/17/18 11:28 BP 128/68 02/17/18 11:28 Pulse Ox 96 02/17/18 11:28 Intake & Output 02/16/18 02/17/18 02/17/18 18:59 06:59 18:59 Intake Total 240 60 360 Output Total 900 275 Balance 240 -840 85 Weight 86.7 kg 85.4 kg Intake: Intake, IV Titration 60 Amount Sodium Chloride 0.9% 1, 60 000 ml @ 20 mls/hr IV . Q24H [facility] Rx#:[id number] Oral 240 360 Output: Urine 900 275 - Exam PHYSICAL EXAMINATION: GENERAL: The patient is alert and oriented x3, not in any acute distress. Well developed, well nourished. HEENT: Pupils are round and equally reacting to light. EOMI. No scleral icterus. No conjunctival pallor. Normocephalic, atraumatic. No pharyngeal erythema. No thyromegaly. CARDIOVASCULAR: S1 and S2 present. No murmurs, rubs, or gallops. PULMONARY: Chest is clear to auscultation, no wheezing or crackles. ABDOMEN: Soft, nontender, nondistended, normoactive bowel sounds. No palpable organomegaly. MUSCULOSKELETAL: No joint swelling or deformity. EXTREMITIES: No cyanosis, clubbing, or pedal edema. NEUROLOGICAL: Gross neurological examination did not reveal any focal deficits. SKIN: No rashes. - Labs CBC & Chem 7: 02/16/18 07:15 02/16/18 07:15 Labs: Abnormal Lab Results - Last 24 Hours (Table) 02/16/18 02/16/18 02/17/18 Range/Units 16:54 20:58 05:38 POC Glucose (mg/dL) 137 H 206 H 127 H (75-99) mg/dL 02/17/18 Range/Units 11:28 POC Glucose (mg/dL) 100 H (75-99) mg/dL Assessment and Plan Plan: -Acute hypoxic respiratory failure: Secondary to congestive heart failure exacerbation patient has chronic systolic dysfunction. -Possibly COPD exacerbation patient will will be continued on 40 mg of oral steroids inhalational treatments. -Coronary artery disease with the ischemic cardiomyopathy -Hyperlipidemia -Hypertension -Chronic kidney disease stage III secondary to diabetic nephropathy -Type 2 diabetes mellitus For above-mentioned chronic medical problems patient will be continued on appropriate home medications and patient will be can you done IV 40 twice a day of Lasix with close kidney function monitoring and electrolyte monitoring
--- NOTE | 2018-02-17 15:02 | P.PN ---
Subjective Progress Note Date: 02/17/18 This is a 72-year-old gentleman with history of coronary artery disease and prior bypass surgery, hypertension, hyperlipidemia, chronic A. fib, sick sinus syndrome with prior pacemaker implantation, who presented to the hospital with symptoms of progressively worsening shortness of breath. VQ scan was performed which came back low probability for pulmonary embolism. His EKG shows atrial fibrillation with a paced rhythm. Troponins 0.024, 0.012, 0.035. Patient was seen and examined this morning, his weight is down 1 kg today. Diuresed well on IV Lasix. Denies any chest pain or difficulty in breathing today. Objective - Vital Signs Vital signs: Vital Signs Temp 97.2 F L 02/17/18 11:28 Pulse 50 L 02/17/18 11:28 Resp 16 02/17/18 11:28 BP 128/68 02/17/18 11:28 Pulse Ox 96 02/17/18 11:28 Intake & Output 02/16/18 02/17/18 02/17/18 18:59 06:59 18:59 Intake Total 240 60 360 Output Total 900 275 Balance 240 -840 85 Weight 86.7 kg 85.4 kg Intake: Intake, IV Titration 60 Amount Sodium Chloride 0.9% 1, 60 000 ml @ 20 mls/hr IV . Q24H [facility] Rx#:[id number] Oral 240 360 Output: Urine 900 275 - Exam PHYSICAL EXAMINATION: HEENT: Head is atraumatic, normocephalic. Pupils equal, round. Neck is supple. There is no elevated jugular venous pressure. HEART EXAMINATION: Heart S1 and S2 irregularly irregular a systolic murmur is heard. CHEST EXAMINATION: Lungs are clear to auscultation and precussion. No chest wall tenderness is noted on palpation or with deep breathing. ABDOMEN: Soft, nontender. Bowel sounds are heard. No organomegaly noted. EXTREMITIES: 2+ peripheral pulses with no evidence of peripheral edema and no calf tenderness noted. NEUROLOGIC patient is awake, alert and oriented -3. . - Labs CBC & Chem 7: 02/16/18 07:15 02/16/18 07:15 Labs: Abnormal Lab Results - Last 24 Hours (Table) 02/16/18 02/16/18 02/17/18 Range/Units 16:54 20:58 05:38 POC Glucose (mg/dL) 137 H 206 H 127 H (75-99) mg/dL 02/17/18 Range/Units 11:28 POC Glucose (mg/dL) 100 H (75-99) mg/dL Assessment and Plan Plan: Assessment and plan #1 systolic congestive heart failure acute on chronic #2 known history of coronary artery disease with prior bypass surgery #3 hypertension #4 hyperlipidemia #5 chronic kidney disease stage III #6 diabetes #7 troponin abnormality, likely secondary to supply and demand mismatch. Plan We will continue IV Lasix for 24 hours. We will also review the echocardiogram with Doppler study which is still pending. Schedule the patient for a Lexiscan stress test tomorrow. Further recommendations to follow. DNP note has been reviewed, I agree with a documented findings and plan of care. Patient was seen and examined.
[2018-02-17 15:21] VITALS: BMI 26.2
[2018-02-17 16:27] LABS: Glucose,Whole Blood 140 mg/dL (75-99)
--- NOTE | 2018-02-17 19:33 | ECHOF ---
Referral Reason:chf MEASUREMENTS -------- HEIGHT: 180.3 cm WEIGHT: 85.3 kg BP: 156/68 RVIDd: 4.6 cm (< 3.3) IVSd: 1.2 cm (0.6 - 1.1) LVIDd: 5.4 cm (3.9 - 5.3) LVPWd: 1.2 cm (0.6 - 1.1) IVSs: 1.5 cm LVIDs: 5.0 cm LVPWs: 1.3 cm LA Diam: 4.2 cm (2.7 - 3.8) LAESV Index (A-L): 42.32 ml/m Ao Diam: 3.3 cm (2.0 - 3.7) AV Cusp: 1.6 cm (1.5 - 2.6) MV EXCURSION: 15.618 mm (> 18.000) MV EF SLOPE: 44 mm/s (70 - 150) EPSS: 1.7 cm AR PHT: 750 ms RAP: 15.00 mmHg RVSP: 41.05 mmHg FINDINGS -------- AICD This was a technically good study. The left ventricular size is normal. There is borderline concentric left ventricular hypertrophy. Overall left ventricular systolic function is severely impaired with, an EF between 20 - 25 %. The right ventricle is severely enlarged. LA is severely dilated >40 ml/m2 The right atrium is normal in size. There is mild aortic valve sclerosis. There is [id number] aortic regurgitation. The mitral valve leaflets are mildly thickened. Mild mitral annular calcification present. Mild m itral regurgitation is present. Moderate tricuspid regurgitation present. There is mild pulmonary hypertension. The right ventric ular systolic pressure, as measured by Doppler, is 41.05mmHg. Moderate pulmonic regurgitation. The aortic root size is normal. The inferior vena cava is dilated with poor inspiratory collapse which is consistent with estimated r ight atrial pressure of 15 mmHg. There is no pericardial effusion. CONCLUSIONS -------- 1. AICD 2. This was a technically good study. 3. The left ventricular size is normal. 4. There is borderline concentric left ventricular hypertrophy. 5. Overall left ventricular systolic function is severely impaired with, an EF between 20 - 25 %. 6. The right ventricle is severely enlarged. 7. LA is severely dilated >40 ml/m2 8. The right atrium is normal in size. 9. There is mild aortic valve sclerosis. 10. There is dfec-[id number] aortic regurgitation. 11. The mitral valve leaflets are mildly thickened. 12. Mild mitral annular calcification present. 13. Mild mitral regurgitation is present. 14. Moderate tricuspid regurgitation present. 15. There is mild pulmonary hypertension. 16. The right ventricular systolic pressure, as measured by Doppler, is 41.05mmHg. 17. Moderate pulmonic regurgitation. 18. The aortic root size is normal. 19. The inferior vena cava is dilated with poor inspiratory collapse which is consistent with estimat ed right atrial pressure of 15 mmHg. 20. There is no pericardial effusion. FORESTRY SCIENTIST: Linsey Noriega RDCS
[2018-02-17 20:55] LABS: Glucose,Whole Blood 145 mg/dL (75-99)
[2018-02-17] MEDS: ATORVASTATIN 40 MG TAB PO SCH (21:36)
[2018-02-17] MEDS: METOPROLOL TARTRATE 50 MG TAB PO SCH (21:36)
--- NOTE | 2018-02-17 23:01 | PN ---
PROGRESS NOTE The patient is seen for followup for chronic kidney disease. He is currently stable from a Nephrology standpoint with stable renal function. Creatinine about 1.69, which is his baseline. The patient is currently being diuresed. He states he is feeling better. PHYSICAL EXAMINATION: Blood pressure is 128/68, heart rate 50 per minute. He is afebrile. Examination of the heart S1, S2. Examination lungs bilateral breath sounds are heard. Abdomen is soft, nontender. Examination of the lower extremity shows no significant edema. LABS: Show sodium 141, potassium 5.0, serum creatinine 1.69, hemoglobin 12.4 g/dL. ASSESSMENT: 1. Chronic kidney disease, NKF stage III secondary to nephrosclerosis and diabetic nephropathy. Renal function currently at baseline. 2. Fluid overload/congestive heart failure, acute on top of chronic, mainly systolic with ejection fraction of 25%. 3. Chronic obstructive pulmonary disease with possible exacerbation, maintained on steroids. 4. History of bladder cancer. PLAN: Can switch to oral Lasix tomorrow. Renal function is at baseline. Possible discharge tomorrow. MMODL / IJN: [id number] /
[2018-02-18 01:40] VITALS: TEMP 96.9
[2018-02-18] MEDS: SODIUM CHLORIDE 0.9% 1,000 ML IV SCH (04:38)
[2018-02-18] MEDS ORDERED: REGADENOSON 0.4 MG/5 ML SYRINGE IV ONE (05:00)
[2018-02-18 05:34] VITALS: RESP 18
[2018-02-18 05:55] LABS: Anisocytosis Slight; Basophils % (A) 0 %; Eosinophils # (A) 0.1 k/uL (0-0.7); Eosinophils % (A) 0 %; HCT 42.2 % (39.0-53.0); HGB 13.3 gm/dL (13.0-17.5); Hypochromasia Slight; Lymphocytes # (A) 0.8 k/uL (1.0-4.8); Lymphocytes % (A) 5 %; MCH 28.3 pg (25.0-35.0); MCHC 31.5 g/dL (31.0-37.0); MCV 89.8 fL (80.0-100.0); Mean Platelet Volume 8.5; Monocytes # (A) 0.7 k/uL (0-1.0); Monocytes % (A) 5 %; Neutrophils # (A) 13.6 k/uL (1.3-7.7); Neutrophils % (A) 88 %; Platelet Count 133 k/uL (150-450); RDW 16.1 % (11.5-15.5); WBC 15.5 k/uL (3.8-10.6)
[2018-02-18] MEDS ORDERED: AMINOPHYLLINE 500 MG/20 ML VIAL IV PRN (06:00)
[2018-02-18 06:13] LABS: Albumin 3.8 g/dL (3.5-5.0); Calcium 9.4 mg/dL (8.4-10.2); Potassium 4.6 mmol/L (3.5-5.1); Total Bilirubin 0.8 mg/dL (0.2-1.3); Total Protein 7.3 g/dL (6.3-8.2)
[2018-02-18] MEDS: INSULIN ASPART 100 UNIT/ML 1 ML 10 ML VIAL SQ SCH ×2 (06:24→12:33)
[2018-02-18 06:27] LABS: Glucose,Whole Blood 90 mg/dL (75-99)
[2018-02-18] MEDS ORDERED: FUROSEMIDE 40 MG TAB PO SCH (09:00)
--- NOTE | 2018-02-18 10:41 | P.PN ---
Subjective Progress Note Date: 02/18/18 This is a 72-year-old gentleman with history of coronary artery disease and prior bypass surgery, hypertension, hyperlipidemia, chronic A. fib, sick sinus syndrome with prior pacemaker implantation, who presented to the hospital with symptoms of progressively worsening shortness of breath. VQ scan was performed which came back low probability for pulmonary embolism. His EKG shows atrial fibrillation with a paced rhythm. Troponins 0.024, 0.012, 0.035. Patient was seen and examined this morning, his weight is down 1 kg today. Diuresed well on IV Lasix. Denies any chest pain or difficulty in breathing today. 02/18/2018 Patient was seen and examined this morning, denies any chest pain, breathing was stable. Scheduled today to undergo a Lexiscan stress test. Blood pressure 154/70 with a heart rate in the 50s. White blood cell count 15.5 today, hemoglobin 13.3, platelet count 133. BUN 67, creatinine 1.7. Objective - Vital Signs Vital signs: Vital Signs Temp 96.9 F L 02/18/18 04:00 Pulse 50 L 02/18/18 04:00 Resp 18 02/18/18 04:00 BP 154/72 02/18/18 04:00 Pulse Ox 95 02/18/18 04:00 Intake & Output 02/17/18 02/18/18 02/18/18 18:59 06:59 18:59 Intake Total 720 Output Total 575 800 Balance 145 -800 Weight 85.4 kg 93.6 kg 93.44 kg Intake: Oral 720 Output: Urine 575 800 Other: # Voids 1 # Bowel Movements 1 - Exam PHYSICAL EXAMINATION: HEENT: Head is atraumatic, normocephalic. Pupils equal, round. Neck is supple. There is no elevated jugular venous pressure. HEART EXAMINATION: Heart S1 and S2 irregularly irregular a systolic murmur is heard. CHEST EXAMINATION: Lungs are clear to auscultation and precussion. No chest wall tenderness is noted on palpation or with deep breathing. ABDOMEN: Soft, nontender. Bowel sounds are heard. No organomegaly noted. EXTREMITIES: 2+ peripheral pulses with no evidence of peripheral edema and no calf tenderness noted. NEUROLOGIC patient is awake, alert and oriented -3. . - Labs CBC & Chem 7: 02/18/18 05:34 02/18/18 05:34 Labs: Abnormal Lab Results - Last 24 Hours (Table) 02/17/18 02/17/18 02/17/18 Range/Units 11:28 16:25 20:49 WBC (3.8-10.6) k/uL RDW (11.5-15.5) % Plt Count (150-450) k/uL Neutrophils # (1.3-7.7) k/uL Lymphocytes # (1.0-4.8) k/uL BUN (9-20) mg/dL Creatinine (0.66-1.25) mg/dL POC Glucose (mg/dL) 100 H 140 H 145 H (75-99) mg/dL 02/18/18 02/18/18 Range/Units 05:34 05:34 WBC 15.5 H (3.8-10.6) k/uL RDW 16.1 H (11.5-15.5) % Plt Count 133 L (150-450) k/uL Neutrophils # 13.6 H (1.3-7.7) k/uL Lymphocytes # 0.8 L (1.0-4.8) k/uL BUN 67 H (9-20) mg/dL Creatinine 1.70 H (0.66-1.25) mg/dL POC Glucose (mg/dL) (75-99) mg/dL Assessment and Plan Plan: Assessment and plan #1 systolic congestive heart failure acute on chronic #2 known history of coronary artery disease with prior bypass surgery #3 hypertension #4 hyperlipidemia #5 chronic kidney disease stage III #6 diabetes #7 troponin abnormality, likely secondary to supply and demand mismatch. Plan IV Lasix has been discontinued and patient was switched over to oral diuretics today. A Lexiscan stress test will be performed today, if negative the patient may be able to be discharged home from cardiology's perspective, a follow-up appointment will be made with Dr. Luna in the office post discharge. DNP note has been reviewed, I agree with a documented findings and plan of care. Patient was seen and examined.
[2018-02-18] MEDS: predniSONE 20 MG TAB PO SCH (11:23)
[2018-02-18] MEDS: hydrALAZINE HCL 25 MG TAB PO SCH (11:23)
--- NOTE | 2018-02-18 11:23 | EST ---
EXERCISE STRESS AGE: 72 SEX: M HT: 5'11" WT: 184 PROTOCOL: Lexiscan Cardiolite Stress Test HEART RATE REST: 52 BLOOD PRESSURE REST: 151/76 MAXIMUM HEART RATE ACHIEVED: 52 MAXIMUM BLOOD PRESSURE: 155/74 85% MPHR: 125 100% MPHR: 147 CLINICAL INFORMATION: Baseline EKG revealed ventricular paced rhythm with underlying atrial fibrillation. Heart rate was about 50 beats per minute. With Lexiscan administration,. there were no symptoms. Blood pressure was 150/70 without much of a change AND patient continued to demonstrate a ventricular paced rhythm. By EKG criteria, this is an inconclusive Lexiscan stress test. The nuclear scan results which are more pertinent, will be reported by the radiologist. MMODL / IJN: [id number] /
[2018-02-18] MEDS: ALLOPURINOL 100 MG TAB PO SCH (11:24)
[2018-02-18 12:10] LABS: Glucose,Whole Blood 92 mg/dL (75-99)
--- NOTE | 2018-02-18 12:35 | NM ---
EXAMINATION TYPE: NM stress lexiscan cardiolite DATE OF EXAM: 02/18/2018 COMPARISON: NONE HISTORY: Chest pain, remote history of myocardial infarction TECHNIQUE: After the intravenous administration of 10.77 mCi Tc 99m Sestamibi - Cardiolite resting S PECT images acquired 50 minutes post injection. The patient received 0.4mg Lexiscan, 24.8 mCi Tc 99m Sestamibi - Stress images obtained [address] injection FINDINGS: Review of stress and rest SPECT images demonstrates decreased radiotracer uptake on stress to rest im aging along the inferior wall left ventricle. In the apical region there is focus of decreased uptake noted on stress as compared to rest images. Gated analysis shows global hypokinesis with an estimat ed left ventricular ejection fraction of 37 %. IMPRESSION: Findings compatible with prior infarct, nella-infarct pharmacologically induced left ventricular myoca rdial ischemia is suspected. Ejection fraction 37%.
[2018-02-18 13:59] VITALS: BP 158/76; PULSE 55
--- NOTE | 2018-02-18 14:46 | P.DS ---
Providers Date of admission: 02/15/18 23:22 Attending physician: Nohemy Schumacher Consults: 02/15/18 23:15 Consult Physician Stat Consulting Provider: Inna Luna Consult Reason/Comments: CHF Do you want consulting provider notified?: Yes Consult Physician Stat Consulting Provider: Aria Laureano Consult Reason/Comments: chronic kidney disease Do you want consulting provider notified?: Yes Primary care physician: Jose Rafael Jolly MD Hospital Course: 69-year-old gentleman was admitted secondary to chronic systolic dysfunction ischemic cardiomyopathy acute exacerbation of heart failure, patient is clinically doing well. Cardiology is recommending stress test tomorrow before discharge. Continue with IV Lasix. 02/18/2018 Patient is clinically doing well and patient had a stress test which did not show any significant inducible ischemia as per cardiology and the cleared him for discharge and patient is being discharged today in stable medical condition to home patient will receive 40 mg twice a day of Lasix. has unsettled serum creatinine and chronic renal dysfunction because of which we are using hydralazine and isosorbide mononitrate in place of lisinopril. PHYSICAL EXAMINATION: GENERAL: The patient is alert and oriented x3, not in any acute distress. Well developed, well nourished. HEENT: Pupils are round and equally reacting to light. EOMI. No scleral icterus. No conjunctival pallor. Normocephalic, atraumatic. No pharyngeal erythema. No thyromegaly. CARDIOVASCULAR: S1 and S2 present. No murmurs, rubs, or gallops. PULMONARY: Chest is clear to auscultation, no wheezing or crackles. ABDOMEN: Soft, nontender, nondistended, normoactive bowel sounds. No palpable organomegaly. MUSCULOSKELETAL: No joint swelling or deformity. EXTREMITIES: No cyanosis, clubbing, or pedal edema. NEUROLOGICAL: Gross neurological examination did not reveal any focal deficits. SKIN: No rashes. Assessment and Plan Plan: -Acute hypoxic respiratory failure: Secondary to congestive heart failure exacerbation patient has chronic systolic dysfunction. -Possibly COPD exacerbation patient will will be continued on 40 mg of oral steroids inhalational treatments. -Coronary artery disease with the ischemic cardiomyopathy -Hyperlipidemia -Hypertension -Chronic kidney disease stage III secondary to diabetic nephropathy -Type 2 diabetes mellitus Patient Condition at Discharge: Serious Plan - Discharge Summary Discharge Rx Participant: Yes New Discharge Prescriptions: New Albuterol Inhaler [Ventolin Hfa Inhaler] 1 - 2 puff INHALATION Q6HR PRN #1 inhaler PRN Reason: Shortness Of Breath Or Wheezing predniSONE 10 mg PO DAILY #30 tab Tiotropium [place] [Spiriva] 1 cap INHALATION DAILY #1 device Isosorbide Mononitrate ER [Imdur] 30 mg PO DAILY #30 tab Continue Budesonide [Pulmicort Flexhaler] 1 puff INHALATION RT-DAILY Atorvastatin [Lipitor] 40 mg PO HS Allopurinol [Zyloprim] 100 mg PO QAM Calcitriol 0.25 mcg PO MOTUWEFRSA Metoprolol Tartrate [Lopressor] 50 mg PO HS Metoprolol Tartrate [Lopressor] 100 mg PO DAILY Changed Furosemide [Lasix] 40 mg PO BID #0 hydrALAZINE HCL [Apresoline] 50 mg PO TID #90 tab Discharge Medication List Allopurinol [Zyloprim] 100 mg PO QAM 08/24/15 [History] Atorvastatin [Lipitor] 40 mg PO HS 08/24/15 [History] Budesonide [Pulmicort Flexhaler] 1 puff INHALATION RT-DAILY 08/24/15 [History] Calcitriol 0.25 mcg PO MOTUWEFRSA 08/29/15 [History] Metoprolol Tartrate [Lopressor] 50 mg PO HS 11/29/17 [History] Metoprolol Tartrate [Lopressor] 100 mg PO DAILY 11/29/17 [History] Albuterol Inhaler [Ventolin Hfa Inhaler] 1 - 2 puff INHALATION Q6HR PRN #1 inhaler 02/18/18 [Rx] Furosemide [Lasix] 40 mg PO BID #0 02/18/18 [Rx] Isosorbide Mononitrate ER [Imdur] 30 mg PO DAILY #30 tab 02/18/18 [Rx] Tiotropium [place] [Spiriva] 1 cap INHALATION DAILY #1 device 02/18/18 [Rx] hydrALAZINE HCL [Apresoline] 50 mg PO TID #90 tab 02/18/18 [Rx] predniSONE 10 mg PO DAILY #30 tab 02/18/18 [Rx] Follow up Appointment(s)/Referral(s): Inna Luna MD [STAFF PHYSICIAN] - 02/27/18 3:00 pm Jose Rafael Jolly MD [Primary Care Provider] - 3 Days (Office will call you to schedule an ppointment) Patient Instructions/Handouts: Heart Failure (DC), COPD (Chronic Obstructive Pulmonary Disease) (DC) Discharge Disposition: HOME WITH HOME HEALTH SERVICES
--- NOTE | 2018-02-18 17:47 | PN ---
PROGRESS NOTE Patient is seen for followup for chronic kidney disease. His renal function is currently stable with serum creatinine at 1.6-1.7 mg/dL. Patient states he feels well. He denies any shortness of breath. He is scheduled for a stress test today. EXAMINATION: Blood pressure is 158/76. Later on, however, early this morning he was 137/73, heart rate 50 per minute. He is afebrile. HEART: S1, S2. LUNGS: Bilateral breath sounds are heard. Abdomen is soft, nontender. Lower extremities show no significant edema. DRILL OPERATOR PNEUMATIC is grossly intact. Patient is moving all 4 extremities. No focal deficits are noted. LABS: Show sodium 142, potassium 4.6, chloride 103, BUN 67, serum creatinine 1.7. Hemoglobin 13.3 g/dL. ASSESSMENT: 1. Chronic kidney disease [employer] stage 3 secondary to nephrosclerosis. Renal function at baseline. 2. Congestive heart failure, fluid overload, acute on top of chronic, mainly systolic, currently improved. 3. Cardiomyopathy, ejection fraction 25%. 4. Chronic obstructive pulmonary disease with possible exacerbation. 5. History of bladder cancer. PLAN: The patient is cleared for discharge, as his stress test comes out to be negative. MMODL / IJN: [id number] /
== END 2018-02-18 16:37 | disposition home health service (06) | DRG 291 ==
LOC: EC 18:28 → 6SEL 23:22
PROVIDERS: ADMIT Hospitalist; ATTEND Hospitalist
DX: I13.0 Hypertensive heart and chronic kidney disease with heart failure and stage 1 through stage 4 chronic kidney disease, or unspecified chronic kidney disease (principal); I50.23 Acute on chronic systolic (congestive) heart failure; J96.01 Acute respiratory failure with hypoxia; J44.1 Chronic obstructive pulmonary disease with (acute) exacerbation; E11.21 Type 2 diabetes mellitus with diabetic nephropathy; I48.2 Chronic atrial fibrillation; E11.22 Type 2 diabetes mellitus with diabetic chronic kidney disease; E11.319 Type 2 diabetes mellitus with unspecified diabetic retinopathy without macular edema; E78.5 Hyperlipidemia, unspecified; I25.10 Atherosclerotic heart disease of native coronary artery without angina pectoris; I25.2 Old myocardial infarction; I25.5 Ischemic cardiomyopathy; M89.9 Disorder of bone, unspecified; N18.3 Chronic kidney disease, stage 3 (moderate); Z79.52 Long term (current) use of systemic steroids; Z79.899 Other long term (current) drug therapy; Z82.49 Family history of ischemic heart disease and other diseases of the circulatory system; Z85.51 Personal history of malignant neoplasm of bladder; Z87.891 Personal history of nicotine dependence; Z90.6 Acquired absence of other parts of urinary tract; Z95.0 Presence of cardiac pacemaker; Z95.1 Presence of aortocoronary bypass graft; Z96.1 Presence of intraocular lens; Z88.5 Allergy status to narcotic agent
CPT/HCPCS: 36415; 71046; 78452; 78582; 80053; 82550; 82553; 83036; 83735; 83880; 84484; 85025; 85379; 85610; 85730; 93005; 93017; 93306; 94640; 96374; 96375; 99285

== ENCOUNTER → 2018-02-26 | Outpatient (CLI) | payer MEDICARE ==
[2018-02-26 11:16] LABS: Anisocytosis Slight; Basophils % (A) 0 %; Eosinophils % (A) 1 %; HCT 45.5 % (39.0-53.0); HGB 14.8 gm/dL (13.0-17.5); Hypochromasia Slight; Lymphocytes # (A) 1.7 k/uL (1.0-4.8); Lymphocytes % (A) 17 %; MCH 29.2 pg (25.0-35.0); MCHC 32.4 g/dL (31.0-37.0); Mean Platelet Volume 8.4; Monocytes # (A) 0.8 k/uL (0-1.0); Monocytes % (A) 9 %; Neutrophils % (A) 71 %; Platelet Count 143 k/uL (150-450); RBC 5.06 m/uL (4.30-5.90); RDW 16.1 % (11.5-15.5); WBC 9.8 k/uL (3.8-10.6)
[2018-02-26 11:18] LABS: Appearance,Urine Clear (Clear); Bacteria,Urine Occasional /hpf; Bilirubin,Urine Negative (Negative); Blood,Urine Negative (Negative); Color,Urine Yellow; Glucose,Urine (UA) Negative (Negative); Ketones,Urine Negative (Negative); Leukocyte Esterase,Urine Negative (Negative); Mucus,Urine Rare /hpf; Nitrite,Urine Positive (Negative); PH, Urine 6.5 (5.0-8.0); Protein,Urine 1+ (Negative); RBC,Urine 3 /hpf (0-5); Specific Gravity,Urine 1.011 (1.001-1.035); Squamous Epithelial Cell,Urine <1 /hpf (0-4); Urobilinogen,Urine <2.0 mg/dL (<2.0); WBC,Urine 19 /hpf (0-5)
[2018-02-26 11:25] LABS: Calcium 9.2 mg/dL (8.4-10.2); Magnesium 2.1 mg/dL (1.6-2.3); Phosphorus 2.7 mg/dL (2.5-4.5); Potassium 3.8 mmol/L (3.5-5.1); Uric Acid 7.7 mg/dL (3.5-8.5)
[2018-02-26 16:34] LABS: Iron Saturation 27.65 (15.00-50.00)
[2018-02-26 16:42] LABS: Vitamin D 25 Hydroxy 28.1 ng/mL (30.0-100.0)
== END | disposition home or self-care (01) ==
LOC: LABWHC1 10:50
PROVIDERS: ATTEND Nurse Practitioner Family
DX: N18.3 Chronic kidney disease, stage 3 (moderate) (principal); D63.1 Anemia in chronic kidney disease; N25.81 Secondary hyperparathyroidism of renal origin; E55.9 Vitamin D deficiency, unspecified; E79.0 Hyperuricemia without signs of inflammatory arthritis and tophaceous disease; N39.0 Urinary tract infection, site not specified
CPT/HCPCS: 36415; 80048; 81001; 82306; 82728; 83540; 83550; 83735; 83970; 84100; 84550; 85025

== ENCOUNTER → 2018-07-14 | Outpatient (CLI) | payer MEDICARE ==
[2018-07-14 10:49] LABS: Calcium 8.7 mg/dL (8.4-10.2)
[2018-07-14 11:02] LABS: Potassium 2.7 mmol/L (3.5-5.1)
== END | disposition home or self-care (01) ==
LOC: LABWHC1 10:04
PROVIDERS: ATTEND Nurse Practitioner Adult Health
DX: I50.23 Acute on chronic systolic (congestive) heart failure (principal)
CPT/HCPCS: 36415; 80048

== ENCOUNTER → 2018-07-18 | Outpatient (CLI) | payer MEDICARE ==
[2018-07-18 10:43] LABS: Calcium 9.4 mg/dL (8.4-10.2); Magnesium 1.9 mg/dL (1.6-2.3); Potassium 3.5 mmol/L (3.5-5.1); Total Bilirubin 0.9 mg/dL (0.2-1.3); Total Protein 7.4 g/dL (6.3-8.2)
== END | disposition home or self-care (01) ==
LOC: LABWHC1 09:54
PROVIDERS: ATTEND Internal Medicine Interventional Cardiology
DX: E78.2 Mixed hyperlipidemia (principal); E87.6 Hypokalemia
CPT/HCPCS: 36415; 80053; 80061; 83735

== ENCOUNTER → 2018-07-29 | Outpatient (CLI) | payer MEDICARE ==
[2018-07-29 10:41] LABS: Appearance,Urine Clear (Clear); Bilirubin,Urine Negative (Negative); Blood,Urine Trace (Negative); Color,Urine Yellow; Glucose,Urine (UA) Negative (Negative); Hyaline Casts,Urine 13 /lpf (0-2); Ketones,Urine Negative (Negative); Leukocyte Esterase,Urine Negative (Negative); Nitrite,Urine Negative (Negative); Protein,Urine 1+ (Negative); RBC,Urine 1 /hpf (0-5); Specific Gravity,Urine 1.007 (1.001-1.035); Urobilinogen,Urine <2.0 mg/dL (<2.0); WBC,Urine 1 /hpf (0-5)
[2018-07-29 10:46] LABS: Anisocytosis Slight; Basophils # (A) 0.1 k/uL (0-0.2); Basophils % (A) 1 %; Eosinophils # (A) 0.2 k/uL (0-0.7); Eosinophils % (A) 3 %; HCT 45.9 % (39.0-53.0); Lymphocytes # (A) 0.9 k/uL (1.0-4.8); Lymphocytes % (A) 16 %; MCH 28.7 pg (25.0-35.0); MCHC 30.4 g/dL (31.0-37.0); MCV 94.4 fL (80.0-100.0); Monocytes # (A) 0.4 k/uL (0-1.0); Monocytes % (A) 7 %; Neutrophils # (A) 3.8 k/uL (1.3-7.7); Neutrophils % (A) 71 %; Platelet Count 170 k/uL (150-450); RBC 4.86 m/uL (4.30-5.90); RDW 16.7 % (11.5-15.5); WBC 5.4 k/uL (3.8-10.6)
[2018-07-29 11:05] LABS: Albumin 4.1 g/dL (3.5-5.0); Calcium 9.6 mg/dL (8.4-10.2); Magnesium 1.9 mg/dL (1.6-2.3); Phosphorus 3.4 mg/dL (2.5-4.5); Potassium 3.7 mmol/L (3.5-5.1)
[2018-07-29 16:45] LABS: Iron Saturation 29.55 (15.00-50.00)
[2018-07-29 16:52] LABS: Vitamin D 25 Hydroxy 66.6 ng/mL (30.0-100.0)
[2018-07-29 17:17] LABS: Parathyroid Hormone Intact 66.8 pg/mL (14.0-72.0)
== END | disposition home or self-care (01) ==
LOC: LABWHC1 09:47
PROVIDERS: ATTEND Internal Medicine Nephrology
DX: N18.3 Chronic kidney disease, stage 3 (moderate) (principal); N25.81 Secondary hyperparathyroidism of renal origin; D64.9 Anemia, unspecified; M10.9 Gout, unspecified; N39.0 Urinary tract infection, site not specified
CPT/HCPCS: 36415; 80048; 81001; 82040; 82306; 82728; 83540; 83550; 83735; 83970; 84100; 84550; 85025

== ENCOUNTER → 2018-11-04 | Outpatient (CLI) | payer MEDICARE ==
[2018-11-04 18:55] LABS: Albumin 4.4 g/dL (3.80-4.90); Albumin/Globulin Ratio 1.33 (1.20-2.10); Anion Gap 8.5 mmol/L (4.00-12.00); Calcium 9.2 mg/dL (8.7-10.3); Carbon Dioxide 34.5 mmol/L (21.6-31.8); Globulin 3.3 g/dL (2.1-3.7); LDL Cholesterol,Calculated 52.4 mg/dL (0.0-131.0); Potassium 3.3 mmol/L (3.5-5.5); Total Bilirubin 0.7 mg/dL (0.3-1.2); Total Protein 7.7 g/dL (6.2-8.2); VLDL Calculation 58.6 mg/dL (5.00-40.00)
== END ==
LOC: LABWHC1 12:14
PROVIDERS: ATTEND Internal Medicine Interventional Cardiology
DX: E78.2 Mixed hyperlipidemia (principal)
CPT/HCPCS: 36415; 80053; 80061

== ENCOUNTER → 2018-11-13 | Outpatient (CLI) | payer MEDICARE ==
[2018-11-13 18:49] LABS: Anion Gap 10.9 mmol/L (4.00-12.00); Calcium 9.5 mg/dL (8.7-10.3); Carbon Dioxide 32.1 mmol/L (21.6-31.8); Potassium 3.7 mmol/L (3.5-5.5)
== END | disposition home or self-care (01) ==
LOC: LABWHC1 11:25
PROVIDERS: ATTEND Nurse Practitioner Adult Health
DX: I25.5 Ischemic cardiomyopathy (principal); N18.9 Chronic kidney disease, unspecified
CPT/HCPCS: 36415; 80048

== ENCOUNTER → 2018-12-29 | Outpatient (CLI) | payer MEDICARE ==
[2018-12-29 12:29] LABS: Anisocytosis Slight; Basophils # (A) 0.1 k/uL (0-0.2); Basophils % (A) 1 %; Eosinophils # (A) 0.2 k/uL (0-0.7); Eosinophils % (A) 3 %; HCT 42.4 % (39.0-53.0); Lymphocytes # (A) 0.9 k/uL (1.0-4.8); Lymphocytes % (A) 13 %; MCH 32.4 pg (25.0-35.0); MCHC 33.1 g/dL (31.0-37.0); MCV 97.9 fL (80.0-100.0); Macrocytosis Slight; Mean Platelet Volume 7.9; Monocytes # (A) 0.4 k/uL (0-1.0); Monocytes % (A) 5 %; Neutrophils # (A) 5.4 k/uL (1.3-7.7); Neutrophils % (A) 76 %; Platelet Count 129 k/uL (150-450); RBC 4.33 m/uL (4.30-5.90); RDW 17.1 % (11.5-15.5); WBC 7.2 k/uL (3.8-10.6)
[2018-12-29 15:38] LABS: Amorphous Sediment,Urine Occasional /hpf; Appearance,Urine Clear (Clear); Bacteria,Urine Occasional /hpf; Bilirubin,Urine Negative (Negative); Blood,Urine Negative (Negative); Color,Urine Yellow; Glucose,Urine (UA) Negative (Negative); Hyaline Casts,Urine 3 /lpf (0-2); Ketones,Urine Negative (Negative); Leukocyte Esterase,Urine Negative (Negative); Nitrite,Urine Positive (Negative); Protein,Urine Trace (Negative); RBC,Urine 2 /hpf (0-5); Specific Gravity,Urine 1.009 (1.001-1.035); Squamous Epithelial Cell,Urine <1 /hpf (0-4); Urobilinogen,Urine <2.0 mg/dL (<2.0); WBC,Urine <1 /hpf (0-5)
[2018-12-29 17:26] LABS: Parathyroid Hormone Intact 50.3 pg/mL (14.0-72.0)
[2018-12-29 17:49] LABS: Vitamin D 25 Hydroxy 51.8 ng/mL (30.0-100.0)
[2018-12-29 17:51] LABS: Iron Saturation 24.67 (15.00-50.00)
[2018-12-29 18:00] LABS: Albumin 4.4 g/dL (3.80-4.90); Anion Gap 10.1 mmol/L (4.00-12.00); Calcium 9.7 mg/dL (8.7-10.3); Carbon Dioxide 30.9 mmol/L (21.6-31.8); Phosphorus 3.2 mg/dL (2.4-5.1); Uric Acid 7.4 mg/dL (3.7-8.7)
[2018-12-29 18:07] LABS: Anti-DNA, DS unit <1.0 IU/mL; DNA Double-Stranded NEGATIVE (NEGATIVE)
[2018-12-29 18:34] LABS: Creatinine,Urine Random 46.5 mg/dL; Total Protein,Urine Random 23.6 mg/dL (0.0-13.5)
[2018-12-31 13:53] LABS: C-ANCA <1:20 Titer (<1:20); P-ANCA <1:20 Titer (<1:20)
== END ==
LOC: LABWHC1 11:13
PROVIDERS: ATTEND Nurse Practitioner Family
DX: N18.3 Chronic kidney disease, stage 3 (moderate) (principal); D63.1 Anemia in chronic kidney disease; E79.0 Hyperuricemia without signs of inflammatory arthritis and tophaceous disease; N25.81 Secondary hyperparathyroidism of renal origin; R80.9 Proteinuria, unspecified; N39.0 Urinary tract infection, site not specified
CPT/HCPCS: 36415; 80048; 81001; 82040; 82306; 82570; 82728; 83516; 83540; 83550; 83735; 83883; 83970; 84100; 84156; 84166; 84550; 85025; 86038; 86160; 86162; 86225; 86255; 86334

== ENCOUNTER → 2019-04-13 | Outpatient (CLI) | payer MEDICARE ==
[2019-04-13 16:05] LABS: Anion Gap 7.3 mmol/L (4.00-12.00); Carbon Dioxide 28.7 mmol/L (21.6-31.8); Potassium 4.4 mmol/L (3.5-5.5)
== END | disposition home or self-care (01) ==
LOC: LABWHC1 10:36
PROVIDERS: ATTEND Nurse Practitioner Family
DX: N18.3 Chronic kidney disease, stage 3 (moderate) (principal)
CPT/HCPCS: 36415; 80048

== ENCOUNTER → 2019-05-12 | Outpatient (CLI) | payer MEDICARE ==
[2019-05-12 19:20] LABS: Albumin 4.2 g/dL (3.80-4.90); Albumin/Globulin Ratio 1.24 (1.60-3.17); Anion Gap 11.9 mmol/L (4.00-12.00); BUN/Creat Ratio 25.88 Ratio (12.00-20.00); Calcium 9.5 mg/dL (8.7-10.3); Carbon Dioxide 29.1 mmol/L (21.6-31.8); Globulin 3.4 g/dL (1.6-3.3); Total Bilirubin 0.8 mg/dL (0.2-1.2); Total Protein 7.6 g/dL (6.2-8.2)
== END | disposition home or self-care (01) ==
LOC: LABWHC1 12:57
PROVIDERS: ATTEND Nurse Practitioner Adult Health
DX: E78.2 Mixed hyperlipidemia (principal); I25.5 Ischemic cardiomyopathy
CPT/HCPCS: 36415; 80053; 80061

== ENCOUNTER → 2019-09-07 | Outpatient (CLI) | payer MEDICARE ==
[2019-09-07 11:46] LABS: Appearance,Urine Clear (Clear); Bilirubin,Urine Negative (Negative); Blood,Urine Negative (Negative); Color,Urine Yellow; Glucose,Urine (UA) Negative (Negative); Hyaline Casts,Urine 8 /lpf (0-2); Ketones,Urine Negative (Negative); Leukocyte Esterase,Urine Small (Negative); Nitrite,Urine Positive (Negative); PH, Urine 6.5 (5.0-8.0); Protein,Urine Negative (Negative); RBC,Urine 1 /hpf (0-5); Specific Gravity,Urine 1.008 (1.001-1.035); Urobilinogen,Urine <2.0 mg/dL (<2.0); WBC,Urine 4 /hpf (0-5)
[2019-09-07 13:14] LABS: Anisocytosis Slight; HCT 40.3 % (39.0-53.0); HGB 13.5 gm/dL (13.0-17.5); MCH 32.7 pg (25.0-35.0); MCHC 33.4 g/dL (31.0-37.0); MCV 97.9 fL (80.0-100.0); Macrocytosis Slight; Mean Platelet Volume 7.7; Platelet Count 121 k/uL (150-450); RBC 4.12 m/uL (4.30-5.90); RDW 16.2 % (11.5-15.5); WBC 6.5 k/uL (3.8-10.6)
[2019-09-07 18:46] LABS: Iron Saturation 27.85 (15.00-50.00)
[2019-09-07 18:55] LABS: Ferritin 155.2 ng/mL (22.0-322.0)
[2019-09-07 19:46] LABS: African American GFR (CKD) 34.6 (60.0-200.0); Albumin 4.5 g/dL (3.80-4.90); Albumin/Globulin Ratio 1.61 (1.60-3.17); Anion Gap 12.6 mmol/L (4.00-12.00); BUN/Creat Ratio 18.1 Ratio (12.00-20.00); Calcium 9.2 mg/dL (8.7-10.3); Carbon Dioxide 27.4 mmol/L (21.6-31.8); Chol/HDL Ratio 4.19; Globulin 2.8 g/dL (1.6-3.3); LDL Cholesterol,Calculated 48.4 mg/dL (0.0-131.0); Magnesium 2.1 mg/dL (1.5-2.4); Phosphorus 3.9 mg/dL (2.4-5.1); Potassium 4.3 mmol/L (3.5-5.5); Total Bilirubin 0.7 mg/dL (0.3-1.2); Total Protein 7.3 g/dL (6.2-8.2); VLDL Calculation 50.6 mg/dL (5.00-40.00)
== END | disposition home or self-care (01) ==
LOC: LABWHC1 10:07
PROVIDERS: ATTEND Nurse Practitioner Family
DX: D64.9 Anemia, unspecified (principal); M10.9 Gout, unspecified; N25.81 Secondary hyperparathyroidism of renal origin; N39.0 Urinary tract infection, site not specified; E55.9 Vitamin D deficiency, unspecified; N17.9 Acute kidney failure, unspecified; E78.2 Mixed hyperlipidemia; I25.5 Ischemic cardiomyopathy; N18.9 Chronic kidney disease, unspecified
CPT/HCPCS: 36415; 80053; 80061; 81001; 82306; 82728; 83540; 83550; 83735; 83970; 84100; 85027

== ENCOUNTER → 2019-10-17 | Outpatient (CLI) | payer MEDICARE ==
[2019-10-17 17:29] LABS: African American GFR (CKD) 39.1 (60.0-200.0); Anion Gap 8.4 mmol/L (4.00-12.00); BUN/Creat Ratio 16.84 Ratio (12.00-20.00); Calcium 8.8 mg/dL (8.7-10.3); Carbon Dioxide 25.6 mmol/L (21.6-31.8); Potassium 4.9 mmol/L (3.5-5.5)
== END | disposition home or self-care (01) ==
LOC: LABWHC1 11:05
PROVIDERS: ATTEND Internal Medicine Nephrology
DX: N18.3 Chronic kidney disease, stage 3 (moderate) (principal)
CPT/HCPCS: 36415; 80048

== ENCOUNTER → 2019-12-11 | Outpatient (CLI) | payer MEDICARE ==
[2019-12-11 08:36] LABS: Basophils # (A) 0.1 k/uL (0-0.2); Basophils % (A) 2 %; Eosinophils # (A) 0.3 k/uL (0-0.7); Eosinophils % (A) 5 %; HCT 45.6 % (39.0-53.0); HGB 14.2 gm/dL (13.0-17.5); Hypochromasia Slight; Lymphocytes # (A) 1.1 k/uL (1.0-4.8); Lymphocytes % (A) 19 %; MCH 29.7 pg (25.0-35.0); MCV 95.7 fL (80.0-100.0); Mean Platelet Volume 10.2; Monocytes # (A) 0.3 k/uL (0-1.0); Monocytes % (A) 5 %; Neutrophils # (A) 3.8 k/uL (1.3-7.7); Neutrophils % (A) 68 %; Platelet Count 100 k/uL (150-450); RBC 4.77 m/uL (4.30-5.90); RDW 15.8 % (11.5-15.5); WBC 5.6 k/uL (3.8-10.6)
[2019-12-11 10:22] LABS: Appearance,Urine Cloudy (Clear); Bacteria,Urine Rare /hpf; Bilirubin,Urine Negative (Negative); Blood,Urine Negative (Negative); Color,Urine Yellow; Glucose,Urine (UA) Negative (Negative); Ketones,Urine Negative (Negative); Leukocyte Esterase,Urine Trace (Negative); Mucus,Urine Rare /hpf; Nitrite,Urine Positive (Negative); Protein,Urine Trace (Negative); RBC,Urine 2 /hpf (0-5); Specific Gravity,Urine 1.013 (1.001-1.035); Squamous Epithelial Cell,Urine <1 /hpf (0-4); Urobilinogen,Urine <2.0 mg/dL (<2.0); WBC,Urine 14 /hpf (0-5)
[2019-12-11 18:26] LABS: Ferritin 125.1 ng/mL (22.0-322.0)
[2019-12-11 18:30] LABS: % Iron Saturation 17.3 (15.00-50.00); African American GFR (CKD) 44.7 (60.0-200.0); Albumin 4.5 g/dL (3.80-4.90); Anion Gap 8.7 mmol/L (4.00-12.00); BUN/Creat Ratio 15.29 Ratio (12.00-20.00); Calcium 9.1 mg/dL (8.7-10.3); Carbon Dioxide 28.3 mmol/L (21.6-31.8); Magnesium 2.1 mg/dL (1.5-2.4); Non-African American GFR(CKD) 38.6 (60.0-200.0); Phosphorus 3.6 mg/dL (2.4-5.1); Potassium 4.4 mmol/L (3.5-5.5); Uric Acid 5.5 mg/dL (3.7-8.7)
[2019-12-11 18:57] LABS: Creatinine,Urine Random 110.9 mg/dL
[2019-12-11 19:13] LABS: Total Protein,Urine Random 32.9 mg/dL (0.0-13.5)
== END | disposition home or self-care (01) ==
LOC: LABWHC1 08:00
PROVIDERS: ATTEND Internal Medicine Nephrology
DX: N18.3 Chronic kidney disease, stage 3 (moderate) (principal); N25.81 Secondary hyperparathyroidism of renal origin; D63.1 Anemia in chronic kidney disease; N39.0 Urinary tract infection, site not specified; M10.9 Gout, unspecified; E55.9 Vitamin D deficiency, unspecified; R80.9 Proteinuria, unspecified
CPT/HCPCS: 36415; 80048; 81001; 82040; 82306; 82570; 82728; 83540; 83550; 83735; 83970; 84100; 84156; 84550; 85025